=== PATIENT | male | born 1965 | race Asian ===

== ENCOUNTER 2017-06-18 18:16 | Inpatient (IN) | payer SELFPAY ==
[2017-06-18] MEDS ORDERED: HYDROmorphone 1 mg/mL 1mL Syr ONE (21:18)
[2017-06-18 21:31] LABS: % BASOPHILS 0.3 % (0.0-2.0); % EOSINOPHILS 2.3 % (0.0-5.0); % LYMPHOCYTES 9.8 % (20.0-50.0); % MONOCYTES 7.8 % (2.0-10.0); % NEUTROPHILS 79.8 % (40.0-80.0); HEMATOCRIT 38.6 % (41.0-60); HEMOGLOBIN 13.4 gm/dL (12-16); MEAN CELL VOLUME 90.7 fl (80-99); MEAN CORPUSCULAR HEMOGLOBIN 31.6 pg (26.0-30.0); MEAN CORPUSCULAR HGB CONC 34.8 pg (28.0-36.0); MEAN PLATELET VOLUME 8.2 fl; PLATELET COUNT 250 Th/cmm (150-400); RED BLOOD COUNT 4.25 Mil/cmm (4.30-5.70); RED CELL DISTRIBUTION WIDTH 12.9 % (11.5-20.0)
[2017-06-18 21:35] LABS: WHITE BLOOD COUNT 13.8 Th/cmm (4.8-10.8)
[2017-06-18 21:51] LABS: BUN - UREA NITROGEN 14 mg/dL (7-25); BUN/CREATININE RATIO 12.7; CALCIUM SERUM 9.5 mg/dL (8.6-10.3); CARBON DIOXIDE 26.1 mEq/L (21.0-31.0); CHLORIDE 98 mEq/L (98-107); CREATININE - SERUM 1.1 mg/dL (0.7-1.3); GLUCOSE 119 mg/dL (70-105); POTASSIUM SERUM 4.1 mEq/L (3.5-5.1); SODIUM SERUM 131 mEq/L (136-145)
[2017-06-18] MEDS ORDERED: HYDROmorphone 1 mg/mL 1mL Syr IVP STA (22:44)
[2017-06-18] MEDS ORDERED: Albuterol Nebulizer 2.5mg/3mL HHN PRN (22:50)
[2017-06-18] MEDS ORDERED: Maalox 30 mL Cup PO PRN (22:50)
[2017-06-18] MEDS ORDERED: Diltiazem 5 mg/mL 5mL Vial IVP PRN (22:50)
[2017-06-18 22:57] LABS: PROTHROMBIN TIME (TEST) 93.6 SECONDS (9.5-11.5)
[2017-06-18 22:58] LABS: INR > 9.00 (0.5-1.4)
[2017-06-19 00:22] LABS: CREATINE KINASE MB 2.2 ng/mL (0.6-6.3)
[2017-06-19] MEDS ORDERED: Pneumococcal Vaccine 0.5 mL Vial IM ONE (02:24)
--- NOTE | 2017-06-19 03:03 | ED Physician Chart ---
ED Chief Complaint/HPI - Patient Information Date Seen:: 06/18/17 Time Seen:: 20:30 ( requested evaluation in waiting room.) Chief Complaint:: pain in left thigh History of Present Illness:: Pain present for last 3 days, patient thought it was gout; noticed discoloration of his knee, seen by his PMD, instructed to go ER as pain became progressively worse. Allergies:: Allergies Allergy/AdvReac Type Severity Reaction Status Date / Time No Known Allergies Allergy Verified 06/18/17 19:06 Vitals:: Vital Signs - 8 hr 06/18/17 19:11 Temp 98.4 F HR 55 RR 15 BP 146/97 O2 Sat % 100 Historian:: Patient, Other (PMD ) Review:: Nurse's Note Reviewed ED Review of Systems - Review of Systems General/Constitutional: No fever Skin: Skin lesions, Bruising, Other (Significantly hard thigh. ) Head: No headache, No light-headedness Eyes: No loss of vision, No pain ENT: No earache Neck: No neck pain Cardio Vascular: No chest pain, No palpitations Pulmonary: No SOB, No cough GI: No nausea, No vomiting, No diarrhea, No pain G/U: No dysuria Musculoskeletal: Muscle pain Endocrine: No polyuria Psychiatric: No prior psych history Hematopoietic: Bruising, No lymphadenopathy Allergic/Immuno: No urticaria Neurological: No syncope, No headache Other: History of cumadin use for fib. ED Past Medical History - Past Medical History Past Medical History: CAD Family History: None Social History: Non Smoker, No Alcohol, No Drug Use, Surgical History: None Psychiatricy History: None Other PMH History: History of coumadin for fib. Implantable defibrilator. Medication: Reviewed Family Medical History - Family Member Mother History Unknown: Yes Hx Family Coronary Artery Disease: Yes ED Physical Exam - Physical Examination General/Constitutional: Awake, Well-developed, well-nourished, Alert, Ambulatory Head: Atraumatic Eyes: Lids, conjuctiva normal Other Skin comments:: eccymosis and bruising ENMT: External ears, nose nl Neck: Nontender Respiratory: Nl effort/Exclusion, Clear to Auscultation, No Wheeze/Rhonchi/Rales Cardio Vascular: RRR, No murmur, gallop, rubs, NL S1 S2, Carotid/Femoral/Distal pulses equal bilaterally GI: No tenderness/rebounding/guarding, No organomegaly, Normal BS's, Nondistended, No McBurney tenderness : No CVA tenderness Extremities: Normal digits & nails Other Extremities comments:: Left thigh tender Neuro/Psych: Alert/oriented, Mood normal Misc: Normal back ED Labs/Radiology/EKG Results - Lab Results Results: INR 9.0 PTT 107 Will be given vitamin K and fresh frozen plasma PMD notified - Radiology Results Results: Quadricep hematoma shown on CT. ED Assessment - Assessment General Assessment: Acute coumadin toxicity with coagulopathy and muscle hematoma, rule out compartment syndrome This condition life threatening/high prob of deterioration: Yes Assessment/Comments:: Pt needs reversal. ED Septic Shock - . Is Septic Shock (SBP<90, OR Lactate>4 mmol\L) present?: No - <6hrs of presentation: Vital Signs: Vital Signs - 8 hr 06/18/17 19:11 Temp 98.4 F HR 55 RR 15 BP 146/97 O2 Sat % 100 ED Reassessment (Disposition) - Reassessment Reassessment Condition:: Improved - Diagnosis Diagnosis:: Quadricep hematoma - Patient Disposition Discharge/Transfer:: Acute Care w/in this hosp Admitting Medical Physician:: Mike Viveros Time:: 01:30 Condition at Disposition:: Stable, Improved ED Discharge Plan - Patient Disposition Admit/Discharge/Transfer: Acute Care w/in this hosp Condition at Disposition: Stable
--- NOTE | 2017-06-19 08:36 | Diagnostic Imaging Report ---
Exam: CT examination left lower extremity Diagnosis: Swelling left thigh Total DLP equals 429 CTDI equals 9.6 Findings: Multiple contiguous thin section of the left lower extremity was performed from the level of left hip joint to the distal left femur without the administration of contrast material, therefore the study somewhat limited. The study demonstrates heterogeneous focus or enlargement and swelling within the quadriceps muscle measuring 13 x 6.5 x 3.6 cm which might represent area of intramuscular hemorrhage versus mass early inflammatory changes phlegmon formation cannot be excluded Clinical correlation and follow-up examination with intravenous contrast material is recommended. There is evidence for edema and stranding of the facial planes. There is no evidence of abscess formation. No soft tissue subcutaneous gas collection present. Normal appearance of the left femur without abnormality of the periosteum appreciated. IMPRESSION: Large area swelling and heterogeneous density within the left quadriceps muscle might represent intramuscular hematoma inflammatory changes early abscess formation or phlegmon cannot be excluded. Follow-up examination with contrast material is recommended.
--- NOTE | 2017-06-19 08:40 | Diagnostic Imaging Report ---
Exam: CT examination of the left knee joint HISTORY: Pain Total DLP equals 166 CTDI equals 7.3 5: Multiple contiguous thin section of the left knee joint were obtained without administration of contrast material The study demonstrates no evidence of fracture dislocation or joint effusion. There is evidence of subcutaneous soft tissue swelling with edema and stranding in the lateral aspect of the left knee. IMPRESSION: Question of intramuscular hematoma with inflammatory changes, phlegmon formation cannot be excluded. Short interval follow-up examination with contrast material is recommended. If ligamentous or meniscal injury is suspected, MRI examination might be helpful.
[2017-06-19] MEDS: Pantoprazole 40 mg EC Tab PO SCH (09:24)
[2017-06-19 10:24] LABS: % BASOPHILS 0.5 % (0.0-2.0); % EOSINOPHILS 3.2 % (0.0-5.0); % LYMPHOCYTES 10.1 % (20.0-50.0); % MONOCYTES 8.1 % (2.0-10.0); % NEUTROPHILS 78.1 % (40.0-80.0); HEMATOCRIT 32.9 % (41.0-60); HEMOGLOBIN 11.5 gm/dL (12-16); MEAN CORPUSCULAR HEMOGLOBIN 31.5 pg (26.0-30.0); MEAN PLATELET VOLUME 7.9 fl; NEUTROPHILE ABSOLUTE 8.6 Th/cmm (1.8-8.0); PLATELET COUNT 210 Th/cmm (150-400); RED BLOOD COUNT 3.66 Mil/cmm (4.30-5.70); RED CELL DISTRIBUTION WIDTH 12.5 % (11.5-20.0); WHITE BLOOD COUNT 11.1 Th/cmm (4.8-10.8)
[2017-06-19 10:41] LABS: INR 2.71 (0.5-1.4); PROTHROMBIN TIME (TEST) 29.7 SECONDS (9.5-11.5)
[2017-06-19 10:46] LABS: ALB/GLOB RATIO 1.4 (1.0-1.8); ALKALINE PHOSPHATASE 70 U/L (34-104); ANION GAP 8.5 (7.0-16.0); BILIRUBIN,TOTAL 1.3 mg/dL (0.3-1.0); BUN - UREA NITROGEN 14 mg/dL (7-25); CALCIUM SERUM 9.4 mg/dL (8.6-10.3); CARBON DIOXIDE 30.5 mEq/L (21.0-31.0); CHLORIDE 95 mEq/L (98-107); GLUCOSE 124 mg/dL (70-105); SGOT 40 U/L (13-39); SGPT/ALT 48 U/L (7-52); SODIUM SERUM 130 mEq/L (136-145)
[2017-06-19] MEDS ORDERED: VTE Chemical Prophylaxis Screen/Admission MC PRN (15:58)
[2017-06-19] MEDS: Hydrocodone/APAP 5mg/325mg Tab PO PRN (21:42)
[2017-06-20] MEDS: Morphine Sulfate 2 mg/mL 1mL Syr IVP PRN (00:55)
--- NOTE | 2017-06-20 05:42 | History & Physical ---
ADMIT DATE: 06/18/2017 CHIEF COMPLAINT: Left leg pain and swelling. HISTORY OF PRESENT ILLNESS: This is a 51-year-old [place] male with history of CAD, cardiac arrhythmia status post AICD, CHF, who was admitted from home secondary to left leg pain and swelling. The patient was complaining of pain, took Celebrex ____. The patient was brought into the ER. CT showed a large hematoma. Coumadin excess of 9, was given fresh frozen plasma. PAST MEDICAL HISTORY: As mentioned in history present illness. PAST SURGICAL HISTORY: Status post AICD placement. ALLERGIES: No known drug allergies. MEDICATIONS: Lasix, Coreg, Coumadin, amiodarone, lisinopril, digoxin. FAMILY HISTORY: Noncontributory. SOCIAL HISTORY: Nonsmoker, nondrinker, no intravenous drug use. with 3 children. REVIEW OF SYSTEMS: GENERAL: Complains of not feeling well. HEENT: No blurred vision. LUNGS: Negative for COPD and asthma. HEART: The patient is having coronary artery disease, cardiac arrhythmia. ABDOMEN: No nausea, vomiting or pain. GENITOURINARY: The patient denies increased frequency or dysuria. NEUROLOGIC: No headache, seizure or syncope. PSYCHIATRIC: Stable. PHYSICAL EXAMINATION: VITAL SIGNS: Blood pressure 124/67, respiration ____, pulse 62, temperature is 98. GENERAL: A middle-aged male in no acute distress. NECK: Supple. No mass. LUNGS: Equal breath sounds, few rhonchi. HEART: Regular rate and rhythm with systolic ejection murmur. ABDOMEN: Soft, nontender. EXTREMITIES: Positive excoriations. NEUROLOGIC: Limited. EXTREMITIES: Positive edema, left thigh area tender on palpation ____. LABORATORY DATA: WBC 13, hemoglobin 11.5, platelets 210. INR was greater than 9 post-platelet transfusion, fresh frozen plasma showed 2.7. BUN 40, creatinine 1.0. ASSESSMENT AND PLAN: Coumadin toxicity, left lower extremity hematoma. CAD status post AICD, CHF, leukocytosis and anemia. We will monitor the patient's hemoglobin and hematocrit, as well as protime. We will refer the patient to Hematology as well as Cardiology. There was an episode of bradycardia, we will make some adjustment to his antihypertensive medication especially beta-rey. We will continue to monitor the patient closely. We may consider the patient ____. We will continue to follow. [facility]# [id number]
[2017-06-20 05:48] LABS: HEMATOCRIT 35.2 % (41.0-60); HEMOGLOBIN 12.1 gm/dL (12-16); MEAN CELL VOLUME 91.3 fl (80-99); MEAN CORPUSCULAR HEMOGLOBIN 31.4 pg (26.0-30.0); MEAN CORPUSCULAR HGB CONC 34.4 pg (28.0-36.0); MEAN PLATELET VOLUME 8.3 fl; PLATELET COUNT 210 Th/cmm (150-400); RED BLOOD COUNT 3.85 Mil/cmm (4.30-5.70); RED CELL DISTRIBUTION WIDTH 12.6 % (11.5-20.0)
[2017-06-20 06:04] LABS: WHITE BLOOD COUNT 12.6 Th/cmm (4.8-10.8)
[2017-06-20 06:25] LABS: INR 1.6 (0.5-1.4); PROTHROMBIN TIME (TEST) 17.1 SECONDS (9.5-11.5)
[2017-06-20 06:30] LABS: CREATINE KINASE MB 3.4 ng/mL (0.6-6.3)
[2017-06-20 06:44] LABS: EOSINOPHIL 3 % (0-5); NEUTROPHILS 78 % (40-80); TOTAL CELLS COUNTED 100
--- NOTE | 2017-06-20 06:44 | General Progress Note ---
Subjective - Review of Systems Service Date: 06/20/17 Events since last encounter: consult dictated left thigh hematoma on CT and PE cardiology eval - patient not reliable with Coumadin as he does not check his PT regulrly will drain hematoma in AM Objective - Results Result Diagrams: 06/20/17 05:13 06/19/17 10:10 Recent Labs: Laboratory Last Values WBC 12.6 Th/cmm (4.8-10.8) H 06/20/17 05:13 RBC 3.85 Mil/cmm (4.30-5.70) L 06/20/17 05:13 Hgb 12.1 gm/dL (12-16) 06/20/17 05:13 Hct 35.2 % (41.0-60) L 06/20/17 05:13 MCV 91.3 fl (80-99) 06/20/17 05:13 MCH 31.4 pg (26.0-30.0) H 06/20/17 05:13 MCHC Differential 34.4 pg (28.0-36.0) 06/20/17 05:13 RDW 12.6 % (11.5-20.0) 06/20/17 05:13 Plt Count 210 Th/cmm (150-400) 06/20/17 05:13 MPV 8.3 fl 06/20/17 05:13 Neutrophils % 78.0 % (40.0-80.0) 06/20/17 05:13 Lymphocytes % 10.8 % (20.0-50.0) L 06/20/17 05:13 Monocytes % 7.9 % (2.0-10.0) 06/20/17 05:13 Eosinophils % 3.2 % (0.0-5.0) 06/20/17 05:13 Basophils % 0.1 % (0.0-2.0) 06/20/17 05:13 PT 29.7 SECONDS (9.5-11.5) H 06/19/17 10:10 INR 2.71 (0.5-1.4) H 06/19/17 10:10 PTT (Actin FS) 49.1 SECONDS (26.0-38.0) H 06/19/17 10:10 Sodium 130 mEq/L (136-145) L 06/19/17 10:10 Potassium 4.0 mEq/L (3.5-5.1) 06/19/17 10:10 Chloride 95 mEq/L (98-107) L 06/19/17 10:10 Carbon Dioxide 30.5 mEq/L (21.0-31.0) 06/19/17 10:10 Anion Gap 8.5 (7.0-16.0) 06/19/17 10:10 BUN 14 mg/dL (7-25) 06/19/17 10:10 Creatinine 1.0 mg/dL (0.7-1.3) 06/19/17 10:10 Est GFR ( Amer) > 60.0 ml/min (>90) 06/19/17 10:10 Est GFR (Non-Af Amer) > 60.0 ml/min 06/19/17 10:10 BUN/Creatinine Ratio 14.0 06/19/17 10:10 Glucose 124 mg/dL (70-105) H 06/19/17 10:10 Whole Bld Lactic Acid 1.08 mmol/L (0.60-1.99) 06/18/17 23:18 Calcium 9.4 mg/dL (8.6-10.3) 06/19/17 10:10 Total Bilirubin 1.3 mg/dL (0.3-1.0) H 06/19/17 10:10 AST 40 U/L (13-39) H 06/19/17 10:10 ALT 48 U/L (7-52) 06/19/17 10:10 Alkaline Phosphatase 70 U/L (34-104) 06/19/17 10:10 Creatine Kinase 882 U/L (30-223) H 06/20/17 05:13 CK-MB (CK-2) 2.2 ng/mL (0.6-6.3) 06/18/17 21:15 B-Natriuretic Peptide 26.1 pg/mL (5.0-100.0) 06/20/17 05:13 Total Protein 7.3 gm/dL (6.0-8.3) 06/19/17 10:10 Albumin 4.3 gm/dL (4.2-5.5) 06/19/17 10:10 Globulin 3.0 gm/dL 06/19/17 10:10 Albumin/Globulin Ratio 1.4 (1.0-1.8) 06/19/17 10:10 TSH 3.52 uIU/ml (0.34-5.60) 06/19/17 10:10 Blood Type O POSITIVE 06/19/17 00:57 Antibody Screen NEGATIVE 06/19/17 00:57 - Physical Exam Vitals and I&O: Vital Signs Temp 98.1 F 06/20/17 04:00 Pulse 51 06/20/17 04:00 Resp 20 06/20/17 04:00 BP 128/66 06/20/17 04:00 Pulse Ox 96 06/20/17 04:00 Intake & Output 06/19/17 06/19/17 06/20/17 06:59 18:59 06:59 Intake Total 300 900 Output Total 500 1200 Balance -200 -300 Weight (lbs) 69.853 kg 69.853 kg 69.853 kg Intake: Oral 600 Blood Product 300 300 Output: Urine 500 1200 Stool 0 Other: # Voids 1 1 # Bowel Movements 0 Stool Characteristics Formed Brown Active Medications: Current Medications Acetaminophen (Tylenol) 650 mg PO Q4H PRN PRN Reason: Mild Pain Or Fever above 101 Stop: 08/17/17 22:49 Acetaminophen/Hydrocodone Bitart ([place] 5mg/325mg) 1 tab PO Q4H PRN PRN Reason: Pain (Severe) Stop: 08/17/17 22:49 Last Admin: 06/19/17 21:42 Dose: 1 tab Al Hydrox/Mg Hydrox/Simethicone (Maalox) 30 ml PO Q6H PRN PRN Reason: Dyspepsia Stop: 08/17/17 22:49 Albuterol Sulfate (Albuterol 2.5mg/3ml Neb Ud) 2.5 mg HHN Q2HRT PRN PRN Reason: Shortness of Breath or Wheeze Stop: 08/17/17 22:49 Amiodarone HCl (Cordarone) 200 mg PO DAILY [facility] Stop: 08/18/17 08:59 Last Admin: 06/19/17 09:24 Dose: 200 mg Carvedilol (Coreg) 3.125 mg PO BID [facility] Stop: 08/18/17 16:59 Digoxin (Lanoxin) 0.125 mg PO DAILY [facility] Stop: 08/18/17 08:59 Last Admin: 06/19/17 09:25 Dose: 0.125 mg Diltiazem HCl (Cardizem) 20 mg IVP Q4H PRN PRN Reason: HR Greater than 130 per min Stop: 08/17/17 22:49 Lisinopril (Zestril) 5 mg PO DAILY [facility] Stop: 08/19/17 08:59 Miscellaneous (Vte Chemical Prophylaxis Screen/ Admission) 1 ea [facility] PRN PRN PRN Reason: PROTOCOL Stop: 08/18/17 15:57 Morphine Sulfate (Morphine) 2 mg IVP Q4H PRN PRN Reason: Pain (Severe) Stop: 08/17/17 22:49 Last Admin: 06/20/17 00:55 Dose: 2 mg Ondansetron HCl (Zofran) 4 mg IV Q8H PRN PRN Reason: Nausea / Vomiting Stop: 08/17/17 22:49 Pantoprazole Sodium (Protonix) 40 mg PO BID [facility] Stop: 08/18/17 08:59 Last Admin: 06/19/17 09:24 Dose: 40 mg Sodium Chloride (Saline Flush) 10 ml IV QSHIFT [facility] Stop: 08/18/17 07:59 Last Admin: 06/19/17 21:44 Dose: 10 ml Zolpidem Tartrate (Ambien) 10 mg PO HS PRN PRN Reason: Insomnia Stop: 08/17/17 22:49 Assessment/Plan - Problem List Patient Problems: All Active Problems PAIN TO LEFT KNEE/THIGH (Acute)
--- NOTE | 2017-06-20 08:06 | Diagnostic Imaging Report ---
Left lower extremity Doppler arterial ultrasound exam HISTORY: Swelling Sonographic sector images were obtained through the arterial system of the left leg. Associated Doppler data was obtained. The exam demonstrates normal triphasic waveforms within the common femoral, superficial femoral, and popliteal arteries. Biphasic waveforms are seen within the left anterior tibial artery. Abnormal monophasic waveforms noted within the left posterior tibial and dorsalis pedis arteries. Abnormal increase in velocity noted within the left dorsalis fetus artery region. Sonographic images demonstrate mild diffuse atherosclerotic plaque throughout the arterial system. The right ankle-brachial index is normal (0.9). Of note is an approximate 10.0 x 3.4 x 5.7 cm heterogeneous solid density within the soft tissues of the left thigh. Exact etiology is uncertain. Changes related to hematoma or a neoplastic or inflammatory etiology cannot be excluded. The findings correspond to changes noted on a prior CT scan of June 19, 2017. An MRI scan would provide additional characterization and assessment. IMPRESSION: 1. Evidence of mild diffuse atherosclerotic changes throughout the arterial system of the left leg. Findings somewhat more pronounced within the lower leg and foot region. 2. Relatively large heterogeneous density within the soft tissues of the left side. Findings correspond to changes noted on the earlier CT scan of June 19, 2017. Appearance is nonspecific. Changes related to hematoma, neoplasm, or an inflammatory etiology cannot be excluded. An MRI exam would provide additional characterization and specificity.
--- NOTE | 2017-06-20 08:09 | Diagnostic Imaging Report ---
Left lower extremity Doppler venous ultrasound exam HISTORY: Pain/swelling, mass Sonographic sector images were obtained through the deep venous systems of both legs. Associated Doppler data was obtained. The exam demonstrates patency of the common femoral, superficial femoral, popliteal, and posterior tibial veins bilaterally. Specifically, no thrombus is seen. There are normal compressibility and augmentation responses. There is an approximate 14.0 x 3.4 x 5.7 cm heterogeneous density within the soft tissues of the left lateral thigh area. This corresponds to changes noted on a prior CT scan of June 19, 2017. Changes related to hematoma, an inflammatory etiology, or neoplasm cannot be excluded. Clinical correlation is needed. IMPRESSION: 1. Negative examination for deep vein thrombophlebitis 2. Heterogeneous relatively large density within the soft tissues of the left lateral thigh area. This corresponds to changes noted on an earlier CT scan of June 19, 2017.The appearance is nonspecific. Changes related hematoma, an inflammatory etiology, or neoplasm be excluded. Clinical correlation is needed. If necessary, an MRI exam would provide additional characterization and specificity.
[2017-06-20] MEDS: Pantoprazole 40 mg EC Tab PO SCH ×2 (08:44→17:18)
--- NOTE | 2017-06-20 09:48 | Consultation ---
DATE OF CONSULTATION: 06/20/2017 REFERRING PHYSICIAN: Dr. Viveros. REASON FOR CONSULTATION: Pain and swelling, left thigh. Thank you for referring this patient to me. HISTORY OF PRESENT ILLNESS: This is a 51-year-old male, who comes in because of severe pain and swelling of the left thigh, this started about a week ago when the patient, who has been on Coumadin, started taking Celebrex because he thought his gout was responsible for the pain. He started taking Celebrex, but did not check his prothrombin time. He has been taking Coumadin for arrhythmia for which an AICD was placed 7 months ago. Additionally, he has gout for which he takes also medications. On admission, the prothrombin time was markedly elevated to 93.6 seconds for which he was given FFP. This come down now to 29.7 seconds at 2.71 INR. CBC is within normal limits. He underwent CT scan of the extremity, which shows a large hematoma in the left thigh. PHYSICAL EXAMINATION: The patient is alert and awake. He has marked swelling and tenderness in the left thigh. Peripheral circulation in the lower extremities are within normal limits. IMPRESSION AND RECOMMENDATIONS: We will incise and drain the hematoma tomorrow and hopefully the INR will be better at that time. We will need to monitor his uric acid as well. Cardiology evaluation is needed to get the proper dosage and selection of anticoagulant for this patient, who apparently is not very reliable in checking his prothrombin times, switching to non-Coumadin medication may be indicated. Thank you for this consultation. We will follow. [facility]# [id number]
--- NOTE | 2017-06-20 09:55 | Cardiology ---
06/19/[address] Viveros. M-MODE ECHOCARDIOGRAM: Mitral valve, anterior leaflet of mitral valve shows normal excursion, EF velocity. Posterior leaflet of mitral valve shows normal excursion. Left ventricular posterior wall shows increased thickness, normal excursion. Interventricular septum shows increased thickness, normal excursion, hypertrophy of the left ventricle, ejection fraction 50%. Left atrium normal. Aortic root shows normal dimension, normal excursion of aortic leaflets. CONCLUSION: Hypertrophy of the left ventricle, ejection fraction 50%. 2D ECHO: Long axis view showed normal sized left ventricle with hypertrophy of the left ventricle. Left atrium normal. Aortic root shows normal dimension, normal excursion of aortic leaflets. Short axis view of mitral valve normal. Short axis view of aortic valve normal. Apical four chamber view showed normal sized left ventricle, left atrium, right ventricle, right atrium, tricuspid and mitral valve. Ejection fraction 50%. CONCLUSION: Hypertrophy of the left ventricle, ejection fraction 50%. Doppler study showed trace tricuspid regurgitation, trace pulmonary regurgitation, trace aortic regurgitation. Right ventricular systolic pressure 21 mmHg. [facility]# [id number]
[2017-06-20] MEDS: Hydrocodone/APAP 5mg/325mg Tab PO PRN ×2 (11:48→19:41)
--- NOTE | 2017-06-20 14:13 | Internal Medicine Prog Note ---
Internal Medicine Subjective - Subjective Service Date: 06/20/17 (patient c/o left knee pain that radiates to his tail bone he states that morphine helps relieve the pain. denies chest pain or sob. ) Internal Medicine Objective - Results Result Diagrams: 06/20/17 05:13 06/19/17 10:10 Recent Labs: Laboratory Last Values WBC 12.6 Th/cmm (4.8-10.8) H 06/20/17 05:13 RBC 3.85 Mil/cmm (4.30-5.70) L 06/20/17 05:13 Hgb 12.1 gm/dL (12-16) 06/20/17 05:13 Hct 35.2 % (41.0-60) L 06/20/17 05:13 MCV 91.3 fl (80-99) 06/20/17 05:13 MCH 31.4 pg (26.0-30.0) H 06/20/17 05:13 MCHC Differential 34.4 pg (28.0-36.0) 06/20/17 05:13 RDW 12.6 % (11.5-20.0) 06/20/17 05:13 Plt Count 210 Th/cmm (150-400) 06/20/17 05:13 MPV 8.3 fl 06/20/17 05:13 Neutrophils % METAL TURNER 06/20/17 05:13 Lymphocytes % METAL TURNER 06/20/17 05:13 Monocytes % METAL TURNER 06/20/17 05:13 Eosinophils % METAL TURNER 06/20/17 05:13 Basophils % METAL TURNER 06/20/17 05:13 Neutrophils (Manual) 78 % (40-80) 06/20/17 05:13 Lymphocytes 16 % (20-50) L 06/20/17 05:13 Monocytes 3 % (2-10) 06/20/17 05:13 Eosinophils 3 % (0-5) 06/20/17 05:13 PT 17.1 SECONDS (9.5-11.5) H 06/20/17 05:13 INR 1.60 (0.5-1.4) H 06/20/17 05:13 PTT (Actin FS) 39.9 SECONDS (26.0-38.0) H 06/20/17 05:13 Sodium 130 mEq/L (136-145) L 06/19/17 10:10 Potassium 4.0 mEq/L (3.5-5.1) 06/19/17 10:10 Chloride 95 mEq/L (98-107) L 06/19/17 10:10 Carbon Dioxide 30.5 mEq/L (21.0-31.0) 06/19/17 10:10 Anion Gap 8.5 (7.0-16.0) 06/19/17 10:10 BUN 14 mg/dL (7-25) 06/19/17 10:10 Creatinine 1.0 mg/dL (0.7-1.3) 06/19/17 10:10 Est GFR ( Amer) > 60.0 ml/min (>90) 06/19/17 10:10 Est GFR (Non-Af Amer) > 60.0 ml/min 06/19/17 10:10 BUN/Creatinine Ratio 14.0 06/19/17 10:10 Glucose 124 mg/dL (70-105) H 06/19/17 10:10 Whole Bld Lactic Acid 1.08 mmol/L (0.60-1.99) 06/18/17 23:18 Uric Acid 3.9 mg/dL (4.4-7.6) L 06/20/17 05:13 Calcium 9.4 mg/dL (8.6-10.3) 06/19/17 10:10 Total Bilirubin 1.3 mg/dL (0.3-1.0) H 06/19/17 10:10 AST 40 U/L (13-39) H 06/19/17 10:10 ALT 48 U/L (7-52) 06/19/17 10:10 Alkaline Phosphatase 70 U/L (34-104) 06/19/17 10:10 Creatine Kinase 882 U/L (30-223) H 06/20/17 05:13 CK-MB (CK-2) 3.4 ng/mL (0.6-6.3) 06/20/17 05:13 B-Natriuretic Peptide 26.1 pg/mL (5.0-100.0) 06/20/17 05:13 Total Protein 7.3 gm/dL (6.0-8.3) 06/19/17 10:10 Albumin 4.3 gm/dL (4.2-5.5) 06/19/17 10:10 Globulin 3.0 gm/dL 06/19/17 10:10 Albumin/Globulin Ratio 1.4 (1.0-1.8) 06/19/17 10:10 TSH 3.52 uIU/ml (0.34-5.60) 06/19/17 10:10 Blood Type O POSITIVE 06/19/17 00:57 Antibody Screen NEGATIVE 06/19/17 00:57 - Physical Exam Vitals and I&O: Vital Signs Temp 98.0 F 06/20/17 12:00 Pulse 60 06/20/17 12:00 Resp 19 06/20/17 12:00 BP 113/61 06/20/17 12:00 Pulse Ox 96 06/20/17 12:00 Intake & Output 06/19/17 06/20/17 06/20/17 18:59 06:59 18:59 Intake Total 900 Output Total 1200 Balance -300 Weight (lbs) 154 lb 154 lb Intake: Oral 600 Blood Product 300 Output: Urine 1200 Stool 0 Other: # Voids 1 # Bowel Movements 0 Stool Characteristics Formed Brown Active Medications: Current Medications Acetaminophen (Tylenol) 650 mg PO Q4H PRN PRN Reason: Mild Pain Or Fever above 101 Stop: 08/17/17 22:49 Acetaminophen/Hydrocodone Bitart ([place] 5mg/325mg) 1 tab PO Q4H PRN PRN Reason: Pain (Severe) Stop: 08/17/17 22:49 Last Admin: 06/20/17 11:48 Dose: 1 tab Al Hydrox/Mg Hydrox/Simethicone (Maalox) 30 ml PO Q6H PRN PRN Reason: Dyspepsia Stop: 08/17/17 22:49 Albuterol Sulfate (Albuterol 2.5mg/3ml Neb Ud) 2.5 mg HHN Q2HRT PRN PRN Reason: Shortness of Breath or Wheeze Stop: 08/17/17 22:49 Amiodarone HCl (Cordarone) 200 mg PO DAILY [facility] Stop: 08/18/17 08:59 Last Admin: 06/20/17 08:45 Dose: 200 mg Carvedilol (Coreg) 3.125 mg PO BID [facility] Stop: 08/18/17 16:59 Last Admin: 06/20/17 08:45 Dose: 3.125 mg Digoxin (Lanoxin) 0.125 mg PO DAILY [facility] Stop: 08/18/17 08:59 Last Admin: 06/20/17 08:43 Dose: 0.125 mg Diltiazem HCl (Cardizem) 20 mg IVP Q4H PRN PRN Reason: HR Greater than 130 per min Stop: 08/17/17 22:49 Lisinopril (Zestril) 5 mg PO DAILY [facility] Stop: 08/19/17 08:59 Last Admin: 06/20/17 08:43 Dose: 5 mg Miscellaneous (Vte Chemical Prophylaxis Screen/ Admission) 1 ea [facility] PRN PRN PRN Reason: PROTOCOL Stop: 08/18/17 15:57 Morphine Sulfate (Morphine) 2 mg IVP Q4H PRN PRN Reason: Pain (Severe) Stop: 08/17/17 22:49 Last Admin: 06/20/17 00:55 Dose: 2 mg Ondansetron HCl (Zofran) 4 mg IV Q8H PRN PRN Reason: Nausea / Vomiting Stop: 08/17/17 22:49 Pantoprazole Sodium (Protonix) 40 mg PO BID [facility] Stop: 08/18/17 08:59 Last Admin: 06/20/17 08:44 Dose: 40 mg Sodium Chloride (Saline Flush) 10 ml IV QSHIFT [facility] Stop: 08/18/17 07:59 Last Admin: 06/20/17 11:46 Dose: 10 ml Zolpidem Tartrate (Ambien) 10 mg PO HS PRN PRN Reason: Insomnia Stop: 08/17/17 22:49 Internal Medicine Assmt/Plan - Assessment Assessment: COUMADIN TOXICITY LLE HEMATOMA CAD S/P AICD CHF LEUKOCYTOSIS ANEMIA - Plan Plan: hematoma evacuation tomorrow by Dr. Ortega telemetry monitoring pain mgmt continue current plan of care
--- NOTE | 2017-06-20 15:47 | General Progress Note ---
Subjective - Review of Systems Service Date: 06/20/17 Events since last encounter: will schedule for surgery in AM Objective - Results Result Diagrams: 06/20/17 05:13 06/19/17 10:10 Recent Labs: Laboratory Last Values WBC 12.6 Th/cmm (4.8-10.8) H 06/20/17 05:13 RBC 3.85 Mil/cmm (4.30-5.70) L 06/20/17 05:13 Hgb 12.1 gm/dL (12-16) 06/20/17 05:13 Hct 35.2 % (41.0-60) L 06/20/17 05:13 MCV 91.3 fl (80-99) 06/20/17 05:13 MCH 31.4 pg (26.0-30.0) H 06/20/17 05:13 MCHC Differential 34.4 pg (28.0-36.0) 06/20/17 05:13 RDW 12.6 % (11.5-20.0) 06/20/17 05:13 Plt Count 210 Th/cmm (150-400) 06/20/17 05:13 MPV 8.3 fl 06/20/17 05:13 Neutrophils % BULK FOLDER 06/20/17 05:13 Lymphocytes % BULK FOLDER 06/20/17 05:13 Monocytes % BULK FOLDER 06/20/17 05:13 Eosinophils % BULK FOLDER 06/20/17 05:13 Basophils % BULK FOLDER 06/20/17 05:13 Neutrophils (Manual) 78 % (40-80) 06/20/17 05:13 Lymphocytes 16 % (20-50) L 06/20/17 05:13 Monocytes 3 % (2-10) 06/20/17 05:13 Eosinophils 3 % (0-5) 06/20/17 05:13 PT 17.1 SECONDS (9.5-11.5) H 06/20/17 05:13 INR 1.60 (0.5-1.4) H 06/20/17 05:13 PTT (Actin FS) 39.9 SECONDS (26.0-38.0) H 06/20/17 05:13 Sodium 130 mEq/L (136-145) L 06/19/17 10:10 Potassium 4.0 mEq/L (3.5-5.1) 06/19/17 10:10 Chloride 95 mEq/L (98-107) L 06/19/17 10:10 Carbon Dioxide 30.5 mEq/L (21.0-31.0) 06/19/17 10:10 Anion Gap 8.5 (7.0-16.0) 06/19/17 10:10 BUN 14 mg/dL (7-25) 06/19/17 10:10 Creatinine 1.0 mg/dL (0.7-1.3) 06/19/17 10:10 Est GFR ( Amer) > 60.0 ml/min (>90) 06/19/17 10:10 Est GFR (Non-Af Amer) > 60.0 ml/min 06/19/17 10:10 BUN/Creatinine Ratio 14.0 06/19/17 10:10 Glucose 124 mg/dL (70-105) H 06/19/17 10:10 Whole Bld Lactic Acid 1.08 mmol/L (0.60-1.99) 06/18/17 23:18 Uric Acid 3.9 mg/dL (4.4-7.6) L 06/20/17 05:13 Calcium 9.4 mg/dL (8.6-10.3) 06/19/17 10:10 Total Bilirubin 1.3 mg/dL (0.3-1.0) H 06/19/17 10:10 AST 40 U/L (13-39) H 06/19/17 10:10 ALT 48 U/L (7-52) 06/19/17 10:10 Alkaline Phosphatase 70 U/L (34-104) 06/19/17 10:10 Creatine Kinase 882 U/L (30-223) H 06/20/17 05:13 CK-MB (CK-2) 3.4 ng/mL (0.6-6.3) 06/20/17 05:13 B-Natriuretic Peptide 26.1 pg/mL (5.0-100.0) 06/20/17 05:13 Total Protein 7.3 gm/dL (6.0-8.3) 06/19/17 10:10 Albumin 4.3 gm/dL (4.2-5.5) 06/19/17 10:10 Globulin 3.0 gm/dL 06/19/17 10:10 Albumin/Globulin Ratio 1.4 (1.0-1.8) 06/19/17 10:10 TSH 3.52 uIU/ml (0.34-5.60) 06/19/17 10:10 Blood Type O POSITIVE 06/19/17 00:57 Antibody Screen NEGATIVE 06/19/17 00:57 - Physical Exam Vitals and I&O: Vital Signs Temp 98.0 F 06/20/17 12:00 Pulse 60 06/20/17 12:00 Resp 19 06/20/17 12:00 BP 113/61 06/20/17 12:00 Pulse Ox 96 06/20/17 12:00 Intake & Output 06/19/17 06/20/17 06/20/17 18:59 06:59 18:59 Intake Total 900 Output Total 1200 Balance -300 Weight (lbs) 69.853 kg 69.853 kg Intake: Oral 600 Blood Product 300 Output: Urine 1200 Stool 0 Other: # Voids 1 # Bowel Movements 0 Stool Characteristics Formed Brown Active Medications: Current Medications Acetaminophen (Tylenol) 650 mg PO Q4H PRN PRN Reason: Mild Pain Or Fever above 101 Stop: 08/17/17 22:49 Acetaminophen/Hydrocodone Bitart ([place] 5mg/325mg) 1 tab PO Q4H PRN PRN Reason: Pain (Severe) Stop: 08/17/17 22:49 Last Admin: 06/20/17 11:48 Dose: 1 tab Al Hydrox/Mg Hydrox/Simethicone (Maalox) 30 ml PO Q6H PRN PRN Reason: Dyspepsia Stop: 08/17/17 22:49 Albuterol Sulfate (Albuterol 2.5mg/3ml Neb Ud) 2.5 mg HHN Q2HRT PRN PRN Reason: Shortness of Breath or Wheeze Stop: 08/17/17 22:49 Amiodarone HCl (Cordarone) 200 mg PO DAILY [facility] Stop: 08/18/17 08:59 Last Admin: 06/20/17 08:45 Dose: 200 mg Carvedilol (Coreg) 3.125 mg PO BID [facility] Stop: 08/18/17 16:59 Last Admin: 06/20/17 08:45 Dose: 3.125 mg Digoxin (Lanoxin) 0.125 mg PO DAILY [facility] Stop: 08/18/17 08:59 Last Admin: 06/20/17 08:43 Dose: 0.125 mg Diltiazem HCl (Cardizem) 20 mg IVP Q4H PRN PRN Reason: HR Greater than 130 per min Stop: 08/17/17 22:49 Lisinopril (Zestril) 5 mg PO DAILY [facility] Stop: 08/19/17 08:59 Last Admin: 06/20/17 08:43 Dose: 5 mg Miscellaneous (Vte Chemical Prophylaxis Screen/ Admission) 1 ea [facility] PRN PRN PRN Reason: PROTOCOL Stop: 08/18/17 15:57 Morphine Sulfate (Morphine) 2 mg IVP Q4H PRN PRN Reason: Pain (Severe) Stop: 08/17/17 22:49 Last Admin: 06/20/17 00:55 Dose: 2 mg Ondansetron HCl (Zofran) 4 mg IV Q8H PRN PRN Reason: Nausea / Vomiting Stop: 08/17/17 22:49 Pantoprazole Sodium (Protonix) 40 mg PO BID [facility] Stop: 08/18/17 08:59 Last Admin: 06/20/17 08:44 Dose: 40 mg Sodium Chloride (Saline Flush) 10 ml IV QSHIFT [facility] Stop: 08/18/17 07:59 Last Admin: 06/20/17 11:46 Dose: 10 ml Zolpidem Tartrate (Ambien) 10 mg PO HS PRN PRN Reason: Insomnia Stop: 08/17/17 22:49 Assessment/Plan - Problem List Patient Problems: All Active Problems PAIN TO LEFT KNEE/THIGH (Acute)
--- NOTE | 2017-06-20 17:53 | Consultation ---
DATE OF CONSULTATION: 06/20/2017 REFERRING PHYSICIAN: Dr. Viveros. REASON FOR CONSULTATION: Coagulopathy. HISTORY OF PRESENT ILLNESS: The patient is a 51-year-old male who has a history of congestive heart failure, status post AICD. He has been on Coumadin for many years. [place] and did not monitor his Coumadin level. He presented with swelling in the left thigh that was confirmed to be a hematoma and in left quadriceps muscle. His INR on presentation was 9. He was given fresh frozen plasma and the INR continues to improve. Hemoglobin is fortunately stable. PAST MEDICAL HISTORY: Congestive heart failure, cardiac arrhythmia, status post AICD. SURGICAL HISTORY: AICD placement. MEDICATIONS: Coumadin, amiodarone, lisinopril, digoxin, Coreg, Lasix. He has been off of Coumadin since admission. PHYSICAL EXAMINATION: GENERAL: He is awake, alert, oriented. VITAL SIGNS: Stable. HEENT: Atraumatic. CHEST: Clear. No peripheral lymphadenopathy. Left chest AICD implanted. ABDOMEN: Soft. No organomegaly. EXTREMITIES: Left thigh swelling and discoloration of the lower left thigh and knee from blood staining of the skin. LABORATORY DATA: Hemoglobin from admission was 13.4, from today is 12.1. White count 12.6 ____. INR from admission was more than 9, and today is 1.6. PTT was 107 and today is 39. Creatinine 1, bilirubin 1.3. ASSESSMENT: Coumadin overdose with markedly elevated INR on admission that was reversed with fresh frozen plasma. The INR continues to improve. The patient will be kept off of anticoagulation until the left thigh hematoma is stabilized and the hemoglobin is completely stable, and then reintroduction of the anticoagulation will be done again once the hematoma seems to be stable and improving. Cardio input is appreciated. Thank you for the opportunity to participate in the care of this interesting case with you. [facility]# [id number]
--- NOTE | 2017-06-20 19:39 | Consultation ---
DATE OF CONSULTATION: 06/19/[address] Viveros. HISTORY AND PHYSICAL: This is a 51-year-old male patient who came to the Emergency Room complaining of pain in the left eye including swelling. The patient had a CT scan which showed large hematoma. The patient is admitted. The patient also has Coumadin toxicity with INR of more than 9. PAST MEDICAL HISTORY: The patient has a history of atrial fibrillation and AICD placement for arrhythmias. FAMILY HISTORY: Unremarkable. SOCIAL HISTORY: No history of smoking, alcohol abuse. ALLERGIES: None. PHYSICAL EXAMINATION: VITAL SIGNS: Blood pressure 130/80, pulse 70, and respirations 20. HEAD: Normocephalic. No lumps or bumps. EYES: Pupils are equal and reactive to light. Fundi show AV nicking, sclerae white, and conjunctivae pink. NECK: Carotid 2+. Normal upstroke. JVD flat. Thyroid not palpable. Lymph nodes not palpable. CHEST: Shows increased AP diameter. No kyphosis or scoliosis. LUNGS: Bilateral bronchovesicular breath sounds. HEART: PMI fifth intercostal space with lateral to midclavicular line. S1, S2. No S3, S4. Systolic murmur, grade 2/6, lower left sternal border without radiation. ABDOMEN: Soft. Liver and spleen not palpable. No organomegaly. Bowel sounds are active. NEUROLOGIC: Unremarkable. EXTREMITIES: Peripheral pulses 1+. No pedal edema. The patient has pain, tenderness, and swelling of the left thigh. CLINICAL IMPRESSION: Left thigh large hematoma, Coumadin toxicity, atrial fibrillation, congestive heart failure, diastolic dysfunction, cardiac arrhythmias with AICD placement, and iron deficiency anemia. PLAN: The patient to get fresh frozen plasma and once Protime is surgical incision and drainage of the hematoma. JOB# [id number]
[2017-06-21 04:39] LABS: NEUTROPHILE ABSOLUTE 10.5 Th/cmm (1.8-8.0)
[2017-06-21 04:44] LABS: % EOSINOPHILS 3.7 % (0.0-5.0); % LYMPHOCYTES 10.5 % (20.0-50.0); % MONOCYTES 8.5 % (2.0-10.0); % NEUTROPHILS 77.3 % (40.0-80.0); HEMATOCRIT 33.7 % (41.0-60); HEMOGLOBIN 11.8 gm/dL (12-16); MEAN CELL VOLUME 90.3 fl (80-99); MEAN CORPUSCULAR HEMOGLOBIN 31.7 pg (26.0-30.0); MEAN CORPUSCULAR HGB CONC 35.1 pg (28.0-36.0); MEAN PLATELET VOLUME 8.4 fl; PLATELET COUNT 235 Th/cmm (150-400); RED BLOOD COUNT 3.73 Mil/cmm (4.30-5.70); RED CELL DISTRIBUTION WIDTH 12.7 % (11.5-20.0)
[2017-06-21 04:49] LABS: INR 1.09 (0.5-1.4); PROTHROMBIN TIME (TEST) 11.4 SECONDS (9.5-11.5)
[2017-06-21 04:54] LABS: ANION GAP 9.6 (7.0-16.0); BUN - UREA NITROGEN 19 mg/dL (7-25); BUN/CREATININE RATIO 21.1; CARBON DIOXIDE 28.4 mEq/L (21.0-31.0); CHLORIDE 97 mEq/L (98-107); CREATININE - SERUM 0.9 mg/dL (0.7-1.3); GLUCOSE 104 mg/dL (70-105); SODIUM SERUM 131 mEq/L (136-145)
[2017-06-21 05:07] LABS: WHITE BLOOD COUNT 13.6 Th/cmm (4.8-10.8)
[2017-06-21] MEDS: Pantoprazole 40 mg EC Tab PO SCH ×2 (09:40→17:14)
--- NOTE | 2017-06-21 11:40 | Internal Medicine Prog Note ---
Internal Medicine Subjective - Subjective Service Date: 06/21/17 (awake, alert, still c/o left knee pain ) Patient seen and examined:: with staff Patient is:: awake Patient Complaints of:: other (left knee pain) Internal Medicine Objective - Results Result Diagrams: 06/21/17 04:17 06/21/17 04:17 Recent Labs: Laboratory Last Values WBC 13.6 Th/cmm (4.8-10.8) H 06/21/17 04:17 RBC 3.73 Mil/cmm (4.30-5.70) L 06/21/17 04:17 Hgb 11.8 gm/dL (12-16) L 06/21/17 04:17 Hct 33.7 % (41.0-60) L 06/21/17 04:17 MCV 90.3 fl (80-99) 06/21/17 04:17 MCH 31.7 pg (26.0-30.0) H 06/21/17 04:17 MCHC Differential 35.1 pg (28.0-36.0) 06/21/17 04: RDW 12.7 % (11.5-20.0) 06/21/17 04:17 Plt Count 235 Th/cmm (150-400) 06/21/17 04:17 MPV 8.4 fl 06/21/17 04:17 Neutrophils % 77.3 % (40.0-80.0) 06/21/17 04:17 Lymphocytes % 10.5 % (20.0-50.0) L 06/21/17 04:17 Monocytes % 8.5 % (2.0-10.0) 06/21/17 04:17 Eosinophils % 3.7 % (0.0-5.0) 06/21/17 04:17 Basophils % 0.0 % (0.0-2.0) 06/21/17 04:17 Neutrophils (Manual) 78 % (40-80) 06/20/17 05:13 Lymphocytes 16 % (20-50) L 06/20/17 05:13 Monocytes 3 % (2-10) 06/20/17 05:13 Eosinophils 3 % (0-5) 06/20/17 05:13 PT 11.4 SECONDS (9.5-11.5) 06/21/17 04:17 INR 1.09 (0.5-1.4) 06/21/17 04:17 PTT (Actin FS) 32.3 SECONDS (26.0-38.0) 06/21/17 04:17 Sodium 131 mEq/L (136-145) L 06/21/17 04:17 Potassium 4.0 mEq/L (3.5-5.1) 06/21/17 04:17 Chloride 97 mEq/L (98-107) L 06/21/17 04:17 Carbon Dioxide 28.4 mEq/L (21.0-31.0) 06/21/17 04:17 Anion Gap 9.6 (7.0-16.0) 06/21/17 04:17 BUN 19 mg/dL (7-25) 06/21/17 04:17 Creatinine 0.9 mg/dL (0.7-1.3) 06/21/17 04:17 Est GFR ( Amer) > 60.0 ml/min (>90) 06/21/17 04:17 Est GFR (Non-Af Amer) > 60.0 ml/min 06/21/17 04:17 BUN/Creatinine Ratio 21.1 06/21/17 04:17 Glucose 104 mg/dL (70-105) 06/21/17 04:17 POC Glucose 102 MG/DL (70 - 105) 06/21/17 06:10 Whole Bld Lactic Acid 1.08 mmol/L (0.60-1.99) 06/18/17 23:18 Uric Acid 3.9 mg/dL (4.4-7.6) L 06/20/17 05:13 Calcium 9.0 mg/dL (8.6-10.3) 06/21/17 04:17 Total Bilirubin 1.3 mg/dL (0.3-1.0) H 06/19/17 10:10 AST 40 U/L (13-39) H 06/19/17 10:10 ALT 48 U/L (7-52) 06/19/17 10:10 Alkaline Phosphatase 70 U/L (34-104) 06/19/17 10:10 Creatine Kinase 882 U/L (30-223) H 06/20/17 05:13 CK-MB (CK-2) 3.4 ng/mL (0.6-6.3) 06/20/17 05:13 B-Natriuretic Peptide 26.1 pg/mL (5.0-100.0) 06/20/17 05:13 Total Protein 7.3 gm/dL (6.0-8.3) 06/19/17 10:10 Albumin 4.3 gm/dL (4.2-5.5) 06/19/17 10:10 Globulin 3.0 gm/dL 06/19/17 10:10 Albumin/Globulin Ratio 1.4 (1.0-1.8) 06/19/17 10:10 TSH 3.52 uIU/ml (0.34-5.60) 06/19/17 10:10 Blood Type O POSITIVE 06/19/17 00:57 Antibody Screen NEGATIVE 06/19/17 00:57 - Physical Exam Vitals and I&O: Vital Signs Temp 97.3 F 06/21/17 04:00 Pulse 60 06/21/17 09:41 Resp 18 06/21/17 04:00 BP 119/72 06/21/17 09:41 Pulse Ox 99 06/21/17 04:00 Intake & Output 06/20/17 06/21/17 06/21/17 18:59 06:59 18:59 Intake Total 400 Output Total 700 100 Balance -300 -100 Weight (lbs) 154 lb 154 lb Intake: Oral 400 Output: Urine 700 100 Other: # Bowel Movements 0 Active Medications: Current Medications Acetaminophen (Tylenol) 650 mg PO Q4H PRN PRN Reason: Mild Pain Or Fever above 101 Stop: 08/17/17 22:49 Acetaminophen/Hydrocodone Bitart ([place] 5mg/325mg) 1 tab PO Q4H PRN PRN Reason: Pain (Severe) Stop: 08/17/17 22:49 Last Admin: 06/20/17 19:41 Dose: 1 tab Al Hydrox/Mg Hydrox/Simethicone (Maalox) 30 ml PO Q6H PRN PRN Reason: Dyspepsia Stop: 08/17/17 22:49 Albuterol Sulfate (Albuterol 2.5mg/3ml Neb Ud) 2.5 mg HHN Q2HRT PRN PRN Reason: Shortness of Breath or Wheeze Stop: 08/17/17 22:49 Amiodarone HCl (Cordarone) 200 mg PO DAILY [facility] Stop: 08/18/17 08:59 Last Admin: 06/21/17 09:41 Dose: 200 mg Carvedilol (Coreg) 3.125 mg PO BID [facility] Stop: 08/18/17 16:59 Last Admin: 06/21/17 09:41 Dose: 3.125 mg Digoxin (Lanoxin) 0.125 mg PO DAILY [facility] Stop: 08/18/17 08:59 Last Admin: 06/21/17 09:41 Dose: 0.125 mg Diltiazem HCl (Cardizem) 20 mg IVP Q4H PRN PRN Reason: HR Greater than 130 per min Stop: 08/17/17 22:49 Lisinopril (Zestril) 5 mg PO DAILY [facility] Stop: 08/19/17 08:59 Last Admin: 06/21/17 09:41 Dose: 5 mg Miscellaneous (Vte Chemical Prophylaxis Screen/ Admission) 1 ea [facility] PRN PRN PRN Reason: PROTOCOL Stop: 08/18/17 15:57 Morphine Sulfate (Morphine) 2 mg IVP Q4H PRN PRN Reason: Pain (Severe) Stop: 08/17/17 22:49 Last Admin: 06/20/17 00:55 Dose: 2 mg Ondansetron HCl (Zofran) 4 mg IV Q8H PRN PRN Reason: Nausea / Vomiting Stop: 08/17/17 22:49 Pantoprazole Sodium (Protonix) 40 mg PO BID [facility] Stop: 08/18/17 08:59 Last Admin: 06/21/17 09:40 Dose: 40 mg Sodium Chloride (Saline Flush) 10 ml IV QSHIFT [facility] Stop: 08/18/17 07:59 Last Admin: 06/21/17 09:41 Dose: 10 ml Zolpidem Tartrate (Ambien) 10 mg PO HS PRN PRN Reason: Insomnia Stop: 08/17/17 22:49 Last Admin: 06/20/17 23:14 Dose: 10 mg General: alert HEENT: NC/AT, PERRLA Neck: Supple Lungs: CTAB Cardiovascular: RRR, Normal S1, Normal S2, without murmur Abdomen: soft, non-tender, non-distended, positive bowel sound Extremities: clear, other (left knee hematoma) Neurological: alert Internal Medicine Assmt/Plan - Assessment Assessment: COUMADIN TOXICITY LLE HEMATOMA CAD S/P AICD CHF LEUKOCYTOSIS ANEMIA - Plan Plan: hematoma evacuation today at noon telemetry monitoring pain mgmt continue current plan of care
--- NOTE | 2017-06-21 12:28 | Diagnostic Imaging Report ---
CHEST X-RAY: AP view INDICATION: Shortness of breath COMPARISON: None FINDINGS: Left chest wall AICD is noted with leads in the right ventricle. No focal consolidation or pleural effusions. Heart size is normal. There is atherosclerosis of the aortic arch. Degenerative changes of the spine are noted. IMPRESSION: No focal airspace consolidation identified. Left chest wall ICD apparatus noted.
[2017-06-21] MEDS ORDERED: fentaNYL Citrate 100 mcg/2mL Vial ONE (12:45)
[2017-06-21] MEDS ORDERED: Midazolam 1mg/ml 2 ml vial IV ONE (12:45)
--- NOTE | 2017-06-21 12:46 | General Progress Note ---
Subjective - Review of Systems Service Date: 06/21/17 Events since last encounter: Op: evacuation of hematoma left thigh discussed with Journal Entry Audit Clerk switching out of Coumadin as patient is unable to track PT well Objective - Results Result Diagrams: 06/21/17 04:17 06/21/17 04:17 Recent Labs: Laboratory Last Values WBC 13.6 Th/cmm (4.8-10.8) H 06/21/17 04:17 RBC 3.73 Mil/cmm (4.30-5.70) L 06/21/17 04:17 Hgb 11.8 gm/dL (12-16) L 06/21/17 04:17 Hct 33.7 % (41.0-60) L 06/21/17 04: MCV 90.3 fl (80-99) 06/21/17 04:17 MCH 31.7 pg (26.0-30.0) H 06/21/17 04: MCHC Differential 35.1 pg (28.0-36.0) 06/21/17 04: RDW 12.7 % (11.5-20.0) 06/21/17 04:17 Plt Count 235 Th/cmm (150-400) 06/21/17 04:17 MPV 8.4 fl 06/21/17 04:17 Neutrophils % 77.3 % (40.0-80.0) 06/21/17 04:17 Lymphocytes % 10.5 % (20.0-50.0) L 06/21/17 04:17 Monocytes % 8.5 % (2.0-10.0) 06/21/17 04:17 Eosinophils % 3.7 % (0.0-5.0) 06/21/17 04:17 Basophils % 0.0 % (0.0-2.0) 06/21/17 04:17 Neutrophils (Manual) 78 % (40-80) 06/20/17 05:13 Lymphocytes 16 % (20-50) L 06/20/17 05:13 Monocytes 3 % (2-10) 06/20/17 05:13 Eosinophils 3 % (0-5) 06/20/17 05:13 PT 11.4 SECONDS (9.5-11.5) 06/21/17 04:17 INR 1.09 (0.5-1.4) 06/21/17 04:17 PTT (Actin FS) 32.3 SECONDS (26.0-38.0) 06/21/17 04:17 Sodium 131 mEq/L (136-145) L 06/21/17 04:17 Potassium 4.0 mEq/L (3.5-5.1) 06/21/17 04:17 Chloride 97 mEq/L (98-107) L 06/21/17 04:17 Carbon Dioxide 28.4 mEq/L (21.0-31.0) 06/21/17 04:17 Anion Gap 9.6 (7.0-16.0) 06/21/17 04:17 BUN 19 mg/dL (7-25) 06/21/17 04:17 Creatinine 0.9 mg/dL (0.7-1.3) 06/21/17 04:17 Est GFR ( Amer) > 60.0 ml/min (>90) 06/21/17 04:17 Est GFR (Non-Af Amer) > 60.0 ml/min 06/21/17 04:17 BUN/Creatinine Ratio 21.1 06/21/17 04:17 Glucose 104 mg/dL (70-105) 06/21/17 04:17 POC Glucose 102 MG/DL (70 - 105) 06/21/17 06:10 Whole Bld Lactic Acid 1.08 mmol/L (0.60-1.99) 06/18/17 23:18 Uric Acid 3.9 mg/dL (4.4-7.6) L 06/20/17 05:13 Calcium 9.0 mg/dL (8.6-10.3) 06/21/17 04:17 Total Bilirubin 1.3 mg/dL (0.3-1.0) H 06/19/17 10:10 AST 40 U/L (13-39) H 06/19/17 10:10 ALT 48 U/L (7-52) 06/19/17 10:10 Alkaline Phosphatase 70 U/L (34-104) 06/19/17 10:10 Creatine Kinase 882 U/L (30-223) H 06/20/17 05:13 CK-MB (CK-2) 3.4 ng/mL (0.6-6.3) 06/20/17 05:13 B-Natriuretic Peptide 26.1 pg/mL (5.0-100.0) 06/20/17 05:13 Total Protein 7.3 gm/dL (6.0-8.3) 06/19/17 10:10 Albumin 4.3 gm/dL (4.2-5.5) 06/19/17 10:10 Globulin 3.0 gm/dL 06/19/17 10:10 Albumin/Globulin Ratio 1.4 (1.0-1.8) 06/19/17 10:10 TSH 3.52 uIU/ml (0.34-5.60) 06/19/17 10:10 Blood Type O POSITIVE 06/19/17 00:57 Antibody Screen NEGATIVE 06/19/17 00:57 - Physical Exam Vitals and I&O: Vital Signs Temp 97.3 F 06/21/17 04:00 Pulse 60 06/21/17 09:41 Resp 18 06/21/17 04:00 BP 119/72 06/21/17 09:41 Pulse Ox 99 06/21/17 04:00 Intake & Output 06/20/17 06/21/17 06/21/17 18:59 06:59 18:59 Intake Total 400 Output Total 700 100 Balance -300 -100 Weight (lbs) 69.853 kg 69.853 kg Intake: Oral 400 Output: Urine 700 100 Other: # Bowel Movements 0 Active Medications: Current Medications Acetaminophen (Tylenol) 650 mg PO Q4H PRN PRN Reason: Mild Pain Or Fever above 101 Stop: 08/17/17 22:49 Acetaminophen/Hydrocodone Bitart ([place] 5mg/325mg) 1 tab PO Q4H PRN PRN Reason: Pain (Severe) Stop: 08/17/17 22:49 Last Admin: 06/20/17 19:41 Dose: 1 tab Al Hydrox/Mg Hydrox/Simethicone (Maalox) 30 ml PO Q6H PRN PRN Reason: Dyspepsia Stop: 08/17/17 22:49 Albuterol Sulfate (Albuterol 2.5mg/3ml Neb Ud) 2.5 mg HHN Q2HRT PRN PRN Reason: Shortness of Breath or Wheeze Stop: 08/17/17 22:49 Amiodarone HCl (Cordarone) 200 mg PO DAILY [facility] Stop: 08/18/17 08:59 Last Admin: 06/21/17 09:41 Dose: 200 mg Carvedilol (Coreg) 3.[address] [facility] Stop: 08/18/17 16:59 Last Admin: 06/21/17 09:41 Dose: 3.125 mg Digoxin (Lanoxin) 0.[address] [facility] Stop: 08/18/17 08:59 Last Admin: 06/21/17 09:41 Dose: 0.125 mg Diltiazem HCl (Cardizem) 20 mg IVP Q4H PRN PRN Reason: HR Greater than 130 per min Stop: 08/17/17 22:49 Lisinopril (Zestril) [address] [facility] Stop: 08/19/17 08:59 Last Admin: 06/21/17 09:41 Dose: 5 mg Miscellaneous (Vte Chemical Prophylaxis Screen/ Admission) 1 ea [facility] PRN PRN PRN Reason: PROTOCOL Stop: 08/18/17 15:57 Morphine Sulfate (Morphine) 2 mg IVP Q4H PRN PRN Reason: Pain (Severe) Stop: 08/17/17 22:49 Last Admin: 06/20/17 00:55 Dose: 2 mg Ondansetron HCl (Zofran) 4 mg IV Q8H PRN PRN Reason: Nausea / Vomiting Stop: 08/17/17 22:49 Pantoprazole Sodium (Protonix) [address] [facility] Stop: 08/18/17 08:59 Last Admin: 06/21/17 09:40 Dose: 40 mg Sodium Chloride (Saline Flush) [address] [facility] Stop: 08/18/17 07:59 Last Admin: 06/21/17 09:41 Dose: 10 ml Zolpidem Tartrate (Ambien) 10 mg PO HS PRN PRN Reason: Insomnia Stop: 08/17/17 22:49 Last Admin: 06/20/17 23:14 Dose: 10 mg Assessment/Plan - Problem List Patient Problems: All Active Problems PAIN TO LEFT KNEE/THIGH (Acute)
--- NOTE | 2017-06-21 15:02 | Operative Report ---
DATE OF SURGERY: 06/21/2017 PREOPERATIVE DIAGNOSES: 1. Hematoma, left thigh. 2. Coumadin toxicity. 3. Cardiac arrhythmias post AICD placement. POSTOPERATIVE DIAGNOSES: 1. Hematoma, left thigh. 2. Coumadin toxicity. 3. Cardiac arrhythmias post AICD placement. OPERATION DONE: Incision and drainage of hematoma, left thigh. SURGEON: Ethan Ortega M.D. ANESTHESIA: MAC. ANESTHESIOLOGIST: Gabrielle Saxena M.D. ESTIMATED BLOOD LOSS: None. INDICATIONS FOR SURGERY: The patient developed severe pain and swelling of the left thigh prior to admission. HISTORY OF PRESENT ILLNESS: The patient is being on Coumadin and taking contraindicated medications, developed severe toxicity with prothrombin time of 99 seconds. This was stopped. CT scan showed hematoma, left side. No compartment syndrome with percent preservation of pulses distally. OPERATIVE FINDINGS: Minimal blood clots in the fascia were placed over the muscles in the lateral and anterior aspect of the left thigh. DESCRIPTION OF PROCEDURE: The patient was given IV sedation. The left thigh was prepped with Betadine and draped in appropriate manner. Then, 1% lidocaine was used to infiltrate the anterolateral aspect of the thigh at its midportion. An incision 2 inches long was made. Digital exploration was carried out. Blood clots noted below and above the side of the incision. Most of blood was in the superior thigh region. A Chung-Montemayor drain was left in the incisions in the cavity. The incision was closed with 4-0 Vicryl subcutaneously and the drain was anchored in place with 2-0 silk. The patient tolerated the procedure well. Discussion was made with Dr. Chase Hudson, special police, regarding Need for anticoagulation postoperative ordered on Coumadin. JOB# [id number]
[2017-06-21] MEDS: Hydrocodone/APAP 5mg/325mg Tab PO PRN (17:19)
[2017-06-22 05:51] LABS: ANION GAP 7.4 (7.0-16.0); BUN - UREA NITROGEN 18 mg/dL (7-25); CARBON DIOXIDE 28.6 mEq/L (21.0-31.0); CHLORIDE 95 mEq/L (98-107); CREATININE - SERUM 0.9 mg/dL (0.7-1.3); GLUCOSE 114 mg/dL (70-105); SODIUM SERUM 127 mEq/L (136-145)
[2017-06-22 05:52] LABS: HEMATOCRIT 34.2 % (41.0-60); HEMOGLOBIN 11.8 gm/dL (12-16); MEAN CELL VOLUME 92.4 fl (80-99); MEAN CORPUSCULAR HEMOGLOBIN 31.8 pg (26.0-30.0); MEAN CORPUSCULAR HGB CONC 34.4 pg (28.0-36.0); MEAN PLATELET VOLUME 8.4 fl; PLATELET COUNT 238 Th/cmm (150-400); RED CELL DISTRIBUTION WIDTH 12.7 % (11.5-20.0)
[2017-06-22 06:37] LABS: WHITE BLOOD COUNT 14.1 Th/cmm (4.8-10.8)
[2017-06-22 07:44] LABS: NEUTROPHILS 92 % (40-80); PLATELET ESTIMATE ADEQUATE (NORMAL); TOTAL CELLS COUNTED 100
[2017-06-22] MEDS: Pantoprazole 40 mg EC Tab PO SCH ×2 (08:30→16:05)
--- NOTE | 2017-06-22 09:42 | General Progress Note ---
Subjective - Review of Systems Service Date: 06/22/17 Events since last encounter: minimal CARMEN drainage restart anticoagulation per Dr. Hudson Objective - Results Result Diagrams: 06/22/17 04:38 06/22/17 04:38 Recent Labs: Laboratory Last Values WBC 14.1 Th/cmm (4.8-10.8) H 06/22/17 04:38 RBC 3.70 Mil/cmm (4.30-5.70) L 06/22/17 04:38 Hgb 11.8 gm/dL (12-16) L 06/22/17 04:38 Hct 34.2 % (41.0-60) L 06/22/17 04:38 MCV 92.4 fl (80-99) 06/22/17 04:38 MCH 31.8 pg (26.0-30.0) H 06/22/17 04:38 MCHC Differential 34.4 pg (28.0-36.0) 06/22/17 04:38 RDW 12.7 % (11.5-20.0) 06/22/17 04:38 Plt Count 238 Th/cmm (150-400) 06/22/17 04:38 MPV 8.4 fl 06/22/17 04:38 Neutrophils % 77.3 % (40.0-80.0) 06/21/17 04:17 Lymphocytes % 10.5 % (20.0-50.0) L 06/21/17 04:17 Monocytes % 8.5 % (2.0-10.0) 06/21/17 04:17 Eosinophils % 3.7 % (0.0-5.0) 06/21/17 04:17 Basophils % 0.0 % (0.0-2.0) 06/21/17 04:17 Neutrophils (Manual) 92 % (40-80) H 06/22/17 04:38 Lymphocytes 4 % (20-50) L 06/22/17 04:38 Monocytes 4 % (2-10) 06/22/17 04:38 Eosinophils 3 % (0-5) 06/20/17 05:13 Platelet Estimate ADEQUATE (NORMAL) 06/22/17 04:38 PT 11.4 SECONDS (9.5-11.5) 06/21/17 04:17 INR 1.09 (0.5-1.4) 06/21/17 04:17 PTT (Actin FS) 32.3 SECONDS (26.0-38.0) 06/21/17 04:17 Sodium 127 mEq/L (136-145) L 06/22/17 04:38 Potassium 4.0 mEq/L (3.5-5.1) 06/22/17 04:38 Chloride 95 mEq/L (98-107) L 06/22/17 04:38 Carbon Dioxide 28.6 mEq/L (21.0-31.0) 06/22/17 04:38 Anion Gap 7.4 (7.0-16.0) 06/22/17 04:38 BUN 18 mg/dL (7-25) 06/22/17 04:38 Creatinine 0.9 mg/dL (0.7-1.3) 06/22/17 04:38 Est GFR ( Amer) > 60.0 ml/min (>90) 06/22/17 04:38 Est GFR (Non-Af Amer) > 60.0 ml/min 06/22/17 04:38 BUN/Creatinine Ratio 20.0 06/22/17 04:38 Glucose 114 mg/dL (70-105) H 06/22/17 04:38 POC Glucose 102 MG/DL (70 - 105) 06/21/17 06:10 Whole Bld Lactic Acid 1.08 mmol/L (0.60-1.99) 06/18/17 23:18 Uric Acid 3.9 mg/dL (4.4-7.6) L 06/20/17 05:13 Calcium 9.0 mg/dL (8.6-10.3) 06/22/17 04:38 Total Bilirubin 1.3 mg/dL (0.3-1.0) H 06/19/17 10:10 AST 40 U/L (13-39) H 06/19/17 10:10 ALT 48 U/L (7-52) 06/19/17 10:10 Alkaline Phosphatase 70 U/L (34-104) 06/19/17 10:10 Creatine Kinase 882 U/L (30-223) H 06/20/17 05:13 CK-MB (CK-2) 3.4 ng/mL (0.6-6.3) 06/20/17 05:13 B-Natriuretic Peptide 26.1 pg/mL (5.0-100.0) 06/20/17 05:13 Total Protein 7.3 gm/dL (6.0-8.3) 06/19/17 10:10 Albumin 4.3 gm/dL (4.2-5.5) 06/19/17 10:10 Globulin 3.0 gm/dL 06/19/17 10:10 Albumin/Globulin Ratio 1.4 (1.0-1.8) 06/19/17 10:10 TSH 3.52 uIU/ml (0.34-5.60) 06/19/17 10:10 Blood Type O POSITIVE 06/19/17 00:57 Antibody Screen NEGATIVE 06/19/17 00:57 - Physical Exam Vitals and I&O: Vital Signs Temp 98.6 F 06/22/17 08:00 Pulse 65 06/22/17 08:30 Resp 18 06/22/17 08:00 BP 113/73 06/22/17 08:30 Pulse Ox 100 06/22/17 08:00 Intake & Output 06/21/17 06/22/17 06/22/17 18:59 06:59 18:59 Intake Total 300 500 Output Total 400 550 Balance -100 -50 Weight (lbs) 69.853 kg 69.853 kg Intake: Oral 300 500 Output: Urine 400 550 Other: # Bowel Movements 0 Active Medications: Current Medications Acetaminophen (Tylenol) 650 mg PO Q4H PRN PRN Reason: Mild Pain Or Fever above 101 Stop: 08/17/17 22:49 Acetaminophen/Hydrocodone Bitart ([place] 5mg/325mg) 1 tab PO Q4H PRN PRN Reason: Pain (Severe) Stop: 08/17/17 22:49 Last Admin: 06/21/17 17:19 Dose: 1 tab Al Hydrox/Mg Hydrox/Simethicone (Maalox) 30 ml PO Q6H PRN PRN Reason: Dyspepsia Stop: 08/17/17 22:49 Albuterol Sulfate (Albuterol 2.5mg/3ml Neb Ud) 2.5 mg HHN Q2HRT PRN PRN Reason: Shortness of Breath or Wheeze Stop: 08/17/17 22:49 Amiodarone HCl (Cordarone) 200 mg PO DAILY [facility] Stop: 08/18/17 08:59 Last Admin: 06/22/17 08:30 Dose: Not Given Carvedilol (Coreg) 3.125 mg PO BID [facility] Stop: 08/18/17 16:59 Last Admin: 06/22/17 08:30 Dose: 3.125 mg Digoxin (Lanoxin) 0.125 mg PO DAILY [facility] Stop: 08/18/17 08:59 Last Admin: 06/22/17 08:28 Dose: 0.125 mg Diltiazem HCl (Cardizem) 20 mg IVP Q4H PRN PRN Reason: HR Greater than 130 per min Stop: 08/17/17 22:49 Lisinopril (Zestril) 5 mg PO DAILY [facility] Stop: 08/19/17 08:59 Last Admin: 06/22/17 08:28 Dose: 5 mg Miscellaneous (Vte Chemical Prophylaxis Screen/ Admission) 1 ea [facility] PRN PRN PRN Reason: PROTOCOL Stop: 08/18/17 15:57 Morphine Sulfate (Morphine) 2 mg IVP Q4H PRN PRN Reason: Pain (Severe) Stop: 08/17/17 22:49 Last Admin: 06/20/17 00:55 Dose: 2 mg Ondansetron HCl (Zofran) 4 mg IV Q8H PRN PRN Reason: Nausea / Vomiting Stop: 08/17/17 22:49 Pantoprazole Sodium (Protonix) 40 mg PO BID [facility] Stop: 08/18/17 08:59 Last Admin: 06/22/17 08:30 Dose: 40 mg Sodium Chloride (Saline Flush) 10 ml IV QSHIFT [facility] Stop: 08/18/17 07:59 Last Admin: 06/22/17 08:29 Dose: 10 ml Zolpidem Tartrate (Ambien) 10 mg PO HS PRN PRN Reason: Insomnia Stop: 08/17/17 22:49 Last Admin: 06/21/17 20:58 Dose: 10 mg Assessment/Plan - Problem List Patient Problems: All Active Problems PAIN TO LEFT KNEE/THIGH (Acute)
--- NOTE | 2017-06-22 12:18 | Internal Medicine Prog Note ---
Internal Medicine Subjective - Subjective Service Date: 06/22/17 (patient states he has not slept well, j/p drain in place , states pain is tolerable. ) Patient is:: awake Patient Complaints of:: other (pain) Per staff patient has:: no adverse event, tolerating meds Internal Medicine Objective - Results Result Diagrams: 06/22/17 04:38 06/22/17 04:38 Recent Labs: Laboratory Last Values WBC 14.1 Th/cmm (4.8-10.8) H 06/22/17 04:38 RBC 3.70 Mil/cmm (4.30-5.70) L 06/22/17 04:38 Hgb 11.8 gm/dL (12-16) L 06/22/17 04:38 Hct 34.2 % (41.0-60) L 06/22/17 04:38 MCV 92.4 fl (80-99) 06/22/17 04:38 MCH 31.8 pg (26.0-30.0) H 06/22/17 04:38 MCHC Differential 34.4 pg (28.0-36.0) 06/22/17 04:38 RDW 12.7 % (11.5-20.0) 06/22/17 04:38 Plt Count 238 Th/cmm (150-400) 06/22/17 04:38 MPV 8.4 fl 06/22/17 04:38 Neutrophils % 77.3 % (40.0-80.0) 06/21/17 04:17 Lymphocytes % 10.5 % (20.0-50.0) L 06/21/17 04:17 Monocytes % 8.5 % (2.0-10.0) 06/21/17 04:17 Eosinophils % 3.7 % (0.0-5.0) 06/21/17 04:17 Basophils % 0.0 % (0.0-2.0) 06/21/17 04:17 Neutrophils (Manual) 92 % (40-80) H 06/22/17 04:38 Lymphocytes 4 % (20-50) L 06/22/17 04:38 Monocytes 4 % (2-10) 06/22/17 04:38 Eosinophils 3 % (0-5) 06/20/17 05:13 Platelet Estimate ADEQUATE (NORMAL) 06/22/17 04:38 PT 11.4 SECONDS (9.5-11.5) 06/21/17 04:17 INR 1.09 (0.5-1.4) 06/21/17 04:17 PTT (Actin FS) 32.3 SECONDS (26.0-38.0) 06/21/17 04:17 Sodium 127 mEq/L (136-145) L 06/22/17 04:38 Potassium 4.0 mEq/L (3.5-5.1) 06/22/17 04:38 Chloride 95 mEq/L (98-107) L 06/22/17 04:38 Carbon Dioxide 28.6 mEq/L (21.0-31.0) 06/22/17 04:38 Anion Gap 7.4 (7.0-16.0) 06/22/17 04:38 BUN 18 mg/dL (7-25) 06/22/17 04:38 Creatinine 0.9 mg/dL (0.7-1.3) 06/22/17 04:38 Est GFR ( Amer) > 60.0 ml/min (>90) 06/22/17 04:38 Est GFR (Non-Af Amer) > 60.0 ml/min 06/22/17 04:38 BUN/Creatinine Ratio 20.0 06/22/17 04:38 Glucose 114 mg/dL (70-105) H 06/22/17 04:38 POC Glucose 102 MG/DL (70 - 105) 06/21/17 06:10 Whole Bld Lactic Acid 1.08 mmol/L (0.60-1.99) 06/18/17 23:18 Uric Acid 3.9 mg/dL (4.4-7.6) L 06/20/17 05:13 Calcium 9.0 mg/dL (8.6-10.3) 06/22/17 04:38 Total Bilirubin 1.3 mg/dL (0.3-1.0) H 06/19/17 10:10 AST 40 U/L (13-39) H 06/19/17 10:10 ALT 48 U/L (7-52) 06/19/17 10:10 Alkaline Phosphatase 70 U/L (34-104) 06/19/17 10:10 Creatine Kinase 882 U/L (30-223) H 06/20/17 05:13 CK-MB (CK-2) 3.4 ng/mL (0.6-6.3) 06/20/17 05:13 B-Natriuretic Peptide 26.1 pg/mL (5.0-100.0) 06/20/17 05:13 Total Protein 7.3 gm/dL (6.0-8.3) 06/19/17 10:10 Albumin 4.3 gm/dL (4.2-5.5) 06/19/17 10:10 Globulin 3.0 gm/dL 06/19/17 10:10 Albumin/Globulin Ratio 1.4 (1.0-1.8) 06/19/17 10:10 TSH 3.52 uIU/ml (0.34-5.60) 06/19/17 10:10 Blood Type O POSITIVE 06/19/17 00:57 Antibody Screen NEGATIVE 06/19/17 00:57 - Physical Exam Vitals and I&O: Vital Signs Temp 98.7 F 06/22/17 11:43 Pulse 54 06/22/17 11:43 Resp 18 06/22/17 11:43 BP 123/71 06/22/17 11:43 Pulse Ox 99 06/22/17 11:43 Intake & Output 06/21/17 06/22/17 06/22/17 18:59 06:59 18:59 Intake Total 300 500 Output Total 400 550 Balance -100 -50 Weight (lbs) 154 lb 154 lb Intake: Oral 300 500 Output: Urine 400 550 Other: # Bowel Movements 0 Active Medications: Current Medications Acetaminophen (Tylenol) 650 mg PO Q4H PRN PRN Reason: Mild Pain Or Fever above 101 Stop: 08/17/17 22:49 Acetaminophen/Hydrocodone Bitart ([place] 5mg/325mg) 1 tab PO Q4H PRN PRN Reason: Pain (Severe) Stop: 08/17/17 22:49 Last Admin: 06/21/17 17:19 Dose: 1 tab Al Hydrox/Mg Hydrox/Simethicone (Maalox) 30 ml PO Q6H PRN PRN Reason: Dyspepsia Stop: 08/17/17 22:49 Albuterol Sulfate (Albuterol 2.5mg/3ml Neb Ud) 2.5 mg HHN Q2HRT PRN PRN Reason: Shortness of Breath or Wheeze Stop: 08/17/17 22:49 Amiodarone HCl (Cordarone) 200 mg PO DAILY [facility] Stop: 08/18/17 08:59 Last Admin: 06/22/17 08:30 Dose: Not Given Carvedilol (Coreg) 3.125 mg PO BID [facility] Stop: 08/18/17 16:59 Last Admin: 06/22/17 08:30 Dose: 3.125 mg Digoxin (Lanoxin) 0.125 mg PO DAILY [facility] Stop: 08/18/17 08:59 Last Admin: 06/22/17 08:28 Dose: 0.125 mg Diltiazem HCl (Cardizem) 20 mg IVP Q4H PRN PRN Reason: HR Greater than 130 per min Stop: 08/17/17 22:49 Lisinopril (Zestril) 5 mg PO DAILY [facility] Stop: 08/19/17 08:59 Last Admin: 06/22/17 08:28 Dose: 5 mg Miscellaneous (Vte Chemical Prophylaxis Screen/ Admission) 1 ea [facility] PRN PRN PRN Reason: PROTOCOL Stop: 08/18/17 15:57 Morphine Sulfate (Morphine) 2 mg IVP Q4H PRN PRN Reason: Pain (Severe) Stop: 08/17/17 22:49 Last Admin: 06/20/17 00:55 Dose: 2 mg Ondansetron HCl (Zofran) 4 mg IV Q8H PRN PRN Reason: Nausea / Vomiting Stop: 08/17/17 22:49 Pantoprazole Sodium (Protonix) 40 mg PO BID [facility] Stop: 08/18/17 08:59 Last Admin: 06/22/17 08:30 Dose: 40 mg Sodium Chloride (Saline Flush) 10 ml IV QSHIFT [facility] Stop: 08/18/17 07:59 Last Admin: 06/22/17 08:29 Dose: 10 ml Sodium Chloride (Nacl Tab) 2 gm PO X1 [facility] Stop: 08/21/17 12:14 Zolpidem Tartrate (Ambien) 10 mg PO HS PRN PRN Reason: Insomnia Stop: 08/17/17 22:49 Last Admin: 06/21/17 20:58 Dose: 10 mg General: alert HEENT: NC/AT, PERRLA Neck: Supple Lungs: CTAB Cardiovascular: RRR, Normal S1, Normal S2, without murmur Abdomen: soft, non-tender, non-distended, positive bowel sound Extremities: clear, other (left knee hematoma) Neurological: alert Internal Medicine Assmt/Plan - Assessment Assessment: COUMADIN TOXICITY LLE HEMATOMA s/p evacuation CAD S/P AICD CHF LEUKOCYTOSIS ANEMIA Hyponatremia - Plan Plan: monitor output of j/p drain nacl 2gm x1 telemetry monitoring pain mgmt continue current plan of care
--- NOTE | 2017-06-22 12:59 | General Progress Note ---
Subjective - Review of Systems Service Date: 06/22/17 Events since last encounter: left thigh drain Objective - Results Result Diagrams: 06/22/17 04:38 06/22/17 04:38 Recent Labs: Laboratory Last Values WBC 14.1 Th/cmm (4.8-10.8) H 06/22/17 04:38 RBC 3.70 Mil/cmm (4.30-5.70) L 06/22/17 04:38 Hgb 11.8 gm/dL (12-16) L 06/22/17 04:38 Hct 34.2 % (41.0-60) L 06/22/17 04:38 MCV 92.4 fl (80-99) 06/22/17 04:38 MCH 31.8 pg (26.0-30.0) H 06/22/17 04:38 MCHC Differential 34.4 pg (28.0-36.0) 06/22/17 04:38 RDW 12.7 % (11.5-20.0) 06/22/17 04:38 Plt Count 238 Th/cmm (150-400) 06/22/17 04:38 MPV 8.4 fl 06/22/17 04:38 Neutrophils % 77.3 % (40.0-80.0) 06/21/17 04:17 Lymphocytes % 10.5 % (20.0-50.0) L 06/21/17 04:17 Monocytes % 8.5 % (2.0-10.0) 06/21/17 04:17 Eosinophils % 3.7 % (0.0-5.0) 06/21/17 04:17 Basophils % 0.0 % (0.0-2.0) 06/21/17 04:17 Neutrophils (Manual) 92 % (40-80) H 06/22/17 04:38 Lymphocytes 4 % (20-50) L 06/22/17 04:38 Monocytes 4 % (2-10) 06/22/17 04:38 Eosinophils 3 % (0-5) 06/20/17 05:13 Platelet Estimate ADEQUATE (NORMAL) 06/22/17 04:38 PT 11.4 SECONDS (9.5-11.5) 06/21/17 04:17 INR 1.09 (0.5-1.4) 06/21/17 04:17 PTT (Actin FS) 32.3 SECONDS (26.0-38.0) 06/21/17 04:17 Sodium 127 mEq/L (136-145) L 06/22/17 04:38 Potassium 4.0 mEq/L (3.5-5.1) 06/22/17 04:38 Chloride 95 mEq/L (98-107) L 06/22/17 04:38 Carbon Dioxide 28.6 mEq/L (21.0-31.0) 06/22/17 04:38 Anion Gap 7.4 (7.0-16.0) 06/22/17 04:38 BUN 18 mg/dL (7-25) 06/22/17 04:38 Creatinine 0.9 mg/dL (0.7-1.3) 06/22/17 04:38 Est GFR ( Amer) > 60.0 ml/min (>90) 06/22/17 04:38 Est GFR (Non-Af Amer) > 60.0 ml/min 06/22/17 04:38 BUN/Creatinine Ratio 20.0 06/22/17 04:38 Glucose 114 mg/dL (70-105) H 06/22/17 04:38 POC Glucose 102 MG/DL (70 - 105) 06/21/17 06:10 Whole Bld Lactic Acid 1.08 mmol/L (0.60-1.99) 06/18/17 23:18 Uric Acid 3.9 mg/dL (4.4-7.6) L 06/20/17 05:13 Calcium 9.0 mg/dL (8.6-10.3) 06/22/17 04:38 Total Bilirubin 1.3 mg/dL (0.3-1.0) H 06/19/17 10:10 AST 40 U/L (13-39) H 06/19/17 10:10 ALT 48 U/L (7-52) 06/19/17 10:10 Alkaline Phosphatase 70 U/L (34-104) 06/19/17 10:10 Creatine Kinase 882 U/L (30-223) H 06/20/17 05:13 CK-MB (CK-2) 3.4 ng/mL (0.6-6.3) 06/20/17 05:13 B-Natriuretic Peptide 26.1 pg/mL (5.0-100.0) 06/20/17 05:13 Total Protein 7.3 gm/dL (6.0-8.3) 06/19/17 10:10 Albumin 4.3 gm/dL (4.2-5.5) 06/19/17 10:10 Globulin 3.0 gm/dL 06/19/17 10:10 Albumin/Globulin Ratio 1.4 (1.0-1.8) 06/19/17 10:10 TSH 3.52 uIU/ml (0.34-5.60) 06/19/17 10:10 Blood Type O POSITIVE 06/19/17 00:57 Antibody Screen NEGATIVE 06/19/17 00:57 - Physical Exam Vitals and I&O: Vital Signs Temp 98.7 F 06/22/17 11:43 Pulse 54 06/22/17 11:43 Resp 18 06/22/17 12:00 BP 123/71 06/22/17 11:43 Pulse Ox 99 06/22/17 11:43 Intake & Output 06/21/17 06/22/17 06/22/17 18:59 06:59 18:59 Intake Total 300 500 Output Total 400 550 Balance -100 -50 Weight (lbs) 69.853 kg 69.853 kg Intake: Oral 300 500 Output: Urine 400 550 Other: # Bowel Movements 0 Active Medications: Current Medications Acetaminophen (Tylenol) 650 mg PO Q4H PRN PRN Reason: Mild Pain Or Fever above 101 Stop: 08/17/17 22:49 Acetaminophen/Hydrocodone Bitart ([place] 5mg/325mg) 1 tab PO Q4H PRN PRN Reason: Pain (Severe) Stop: 08/17/17 22:49 Last Admin: 06/21/17 17:19 Dose: 1 tab Al Hydrox/Mg Hydrox/Simethicone (Maalox) 30 ml PO Q6H PRN PRN Reason: Dyspepsia Stop: 08/17/17 22:49 Albuterol Sulfate (Albuterol 2.5mg/3ml Neb Ud) 2.5 mg HHN Q2HRT PRN PRN Reason: Shortness of Breath or Wheeze Stop: 08/17/17 22:49 Amiodarone HCl (Cordarone) 200 mg PO DAILY [facility] Stop: 08/18/17 08:59 Last Admin: 06/22/17 08:30 Dose: Not Given Carvedilol (Coreg) 3.125 mg PO BID [facility] Stop: 08/18/17 16:59 Last Admin: 06/22/17 08:30 Dose: 3.125 mg Digoxin (Lanoxin) 0.125 mg PO DAILY [facility] Stop: 08/18/17 08:59 Last Admin: 06/22/17 08:28 Dose: 0.125 mg Diltiazem HCl (Cardizem) 20 mg IVP Q4H PRN PRN Reason: HR Greater than 130 per min Stop: 08/17/17 22:49 Lisinopril (Zestril) 5 mg PO DAILY [facility] Stop: 08/19/17 08:59 Last Admin: 06/22/17 08:28 Dose: 5 mg Miscellaneous (Vte Chemical Prophylaxis Screen/ Admission) 1 ea [facility] PRN PRN PRN Reason: PROTOCOL Stop: 08/18/17 15:57 Morphine Sulfate (Morphine) 2 mg IVP Q4H PRN PRN Reason: Pain (Severe) Stop: 08/17/17 22:49 Last Admin: 06/20/17 00:55 Dose: 2 mg Ondansetron HCl (Zofran) 4 mg IV Q8H PRN PRN Reason: Nausea / Vomiting Stop: 08/17/17 22:49 Pantoprazole Sodium (Protonix) 40 mg PO BID [facility] Stop: 08/18/17 08:59 Last Admin: 06/22/17 08:30 Dose: 40 mg Sodium Chloride (Saline Flush) 10 ml IV QSHIFT [facility] Stop: 08/18/17 07:59 Last Admin: 06/22/17 08:29 Dose: 10 ml Zolpidem Tartrate (Ambien) 10 mg PO HS PRN PRN Reason: Insomnia Stop: 08/17/17 22:49 Last Admin: 06/21/17 20:58 Dose: 10 mg Assessment/Plan - Problem List Patient Problems: All Active Problems PAIN TO LEFT KNEE/THIGH (Acute) - Assessment Assessment: * Left thigh hematoma * s/p coumadin overdose Keep off coumadin for now
[2017-06-22] MEDS: Hydrocodone/APAP 5mg/325mg Tab PO PRN ×2 (16:04→20:29)
[2017-06-23 05:41] LABS: % BASOPHILS 0.1 % (0.0-2.0); % EOSINOPHILS 4.5 % (0.0-5.0); % LYMPHOCYTES 11.4 % (20.0-50.0); % MONOCYTES 8.8 % (2.0-10.0); % NEUTROPHILS 75.2 % (40.0-80.0); HEMATOCRIT 32.1 % (41.0-60); MEAN CELL VOLUME 91.9 fl (80-99); MEAN CORPUSCULAR HEMOGLOBIN 31.5 pg (26.0-30.0); MEAN CORPUSCULAR HGB CONC 34.2 pg (28.0-36.0); MEAN PLATELET VOLUME 8.1 fl; NEUTROPHILE ABSOLUTE 8.7 Th/cmm (1.8-8.0); PLATELET COUNT 227 Th/cmm (150-400); RED CELL DISTRIBUTION WIDTH 12.8 % (11.5-20.0); WHITE BLOOD COUNT 11.5 Th/cmm (4.8-10.8)
[2017-06-23] MEDS: Hydrocodone/APAP 5mg/325mg Tab PO PRN ×2 (05:47→19:43)
[2017-06-23 05:54] LABS: INR 0.96 (0.5-1.4)
[2017-06-23 05:58] LABS: ANION GAP 7.4 (7.0-16.0); BUN - UREA NITROGEN 16 mg/dL (7-25); BUN/CREATININE RATIO 17.8; CALCIUM SERUM 8.7 mg/dL (8.6-10.3); CARBON DIOXIDE 29.2 mEq/L (21.0-31.0); CHLORIDE 96 mEq/L (98-107); CREATININE - SERUM 0.9 mg/dL (0.7-1.3); GLUCOSE 101 mg/dL (70-105); POTASSIUM SERUM 3.6 mEq/L (3.5-5.1); SODIUM SERUM 129 mEq/L (136-145)
[2017-06-23] MEDS: Pantoprazole 40 mg EC Tab PO SCH ×2 (08:47→16:09)
--- NOTE | 2017-06-23 14:47 | Internal Medicine Prog Note ---
Internal Medicine Subjective - Subjective Patient seen and examined:: with staff, chart reviewed Patient is:: awake Patient Complaints of:: other (pain) Per staff patient has:: no adverse event, tolerating meds Internal Medicine Objective - Results Result Diagrams: 06/23/17 05:02 06/23/17 05:02 Recent Labs: Laboratory Last Values WBC 11.5 Th/cmm (4.8-10.8) H 06/23/17 05:02 RBC 3.50 Mil/cmm (4.30-5.70) L 06/23/17 05:02 Hgb 11.0 gm/dL (12-16) L 06/23/17 05:02 Hct 32.1 % (41.0-60) L 06/23/17 05:02 MCV 91.9 fl (80-99) 06/23/17 05:02 MCH 31.5 pg (26.0-30.0) H 06/23/17 05:02 MCHC Differential 34.2 pg (28.0-36.0) 06/23/17 05:02 RDW 12.8 % (11.5-20.0) 06/23/17 05:02 Plt Count 227 Th/cmm (150-400) 06/23/17 05:02 MPV 8.1 fl 06/23/17 05:02 Neutrophils % 75.2 % (40.0-80.0) 06/23/17 05:02 Lymphocytes % 11.4 % (20.0-50.0) L 06/23/17 05:02 Monocytes % 8.8 % (2.0-10.0) 06/23/17 05:02 Eosinophils % 4.5 % (0.0-5.0) 06/23/17 05:02 Basophils % 0.1 % (0.0-2.0) 06/23/17 05:02 Neutrophils (Manual) 92 % (40-80) H 06/22/17 04:38 Lymphocytes 4 % (20-50) L 06/22/17 04:38 Monocytes 4 % (2-10) 06/22/17 04:38 Eosinophils 3 % (0-5) 06/20/17 05:13 Platelet Estimate ADEQUATE (NORMAL) 06/22/17 04:38 PT 10.0 SECONDS (9.5-11.5) 06/23/17 05:02 INR 0.96 (0.5-1.4) 06/23/17 05:02 PTT (Actin FS) 29.8 SECONDS (26.0-38.0) 06/23/17 05:02 Sodium 129 mEq/L (136-145) L 06/23/17 05:02 Potassium 3.6 mEq/L (3.5-5.1) 06/23/17 05:02 Chloride 96 mEq/L (98-107) L 06/23/17 05:02 Carbon Dioxide 29.2 mEq/L (21.0-31.0) 06/23/17 05:02 Anion Gap 7.4 (7.0-16.0) 06/23/17 05:02 BUN 16 mg/dL (7-25) 06/23/17 05:02 Creatinine 0.9 mg/dL (0.7-1.3) 06/23/17 05:02 Est GFR ( Amer) > 60.0 ml/min (>90) 06/23/17 05:02 Est GFR (Non-Af Amer) > 60.0 ml/min 06/23/17 05:02 BUN/Creatinine Ratio 17.8 06/23/17 05:02 Glucose 101 mg/dL (70-105) 06/23/17 05:02 POC Glucose 102 MG/DL (70 - 105) 06/21/17 06:10 Whole Bld Lactic Acid 1.08 mmol/L (0.60-1.99) 06/18/17 23:18 Uric Acid 3.9 mg/dL (4.4-7.6) L 06/20/17 05:13 Calcium 8.7 mg/dL (8.6-10.3) 06/23/17 05:02 Total Bilirubin 1.3 mg/dL (0.3-1.0) H 06/19/17 10:10 AST 40 U/L (13-39) H 06/19/17 10:10 ALT 48 U/L (7-52) 06/19/17 10:10 Alkaline Phosphatase 70 U/L (34-104) 06/19/17 10:10 Creatine Kinase 882 U/L (30-223) H 06/20/17 05:13 CK-MB (CK-2) 3.4 ng/mL (0.6-6.3) 06/20/17 05:13 B-Natriuretic Peptide 26.1 pg/mL (5.0-100.0) 06/20/17 05:13 Total Protein 7.3 gm/dL (6.0-8.3) 06/19/17 10:10 Albumin 4.3 gm/dL (4.2-5.5) 06/19/17 10:10 Globulin 3.0 gm/dL 06/19/17 10:10 Albumin/Globulin Ratio 1.4 (1.0-1.8) 06/19/17 10:10 TSH 3.52 uIU/ml (0.34-5.60) 06/19/17 10:10 Blood Type O POSITIVE 06/19/17 00:57 Antibody Screen NEGATIVE 06/19/17 00:57 - Physical Exam Vitals and I&O: Vital Signs Temp 98.7 F 06/23/17 08:00 Pulse 79 06/23/17 08:49 Resp 18 06/23/17 08:00 BP 126/46 06/23/17 08:48 Pulse Ox 98 06/23/17 08:00 Intake & Output 06/22/17 06/23/17 06/23/17 18:59 06:59 18:59 Intake Total 750 700 700 Output Total 16 1040 20 Balance 734 -340 680 Weight (lbs) 69.91 kg 69.853 kg 69.853 kg Intake: Oral 750 700 700 Output: Drainage 15 20 20 Left Thigh 15 20 20 Urine 1 1020 Other: # Bowel Movements 1 Active Medications: Current Medications Acetaminophen (Tylenol) 650 mg PO Q4H PRN PRN Reason: Mild Pain Or Fever above 101 Stop: 08/17/17 22:49 Acetaminophen/Hydrocodone Bitart ([place] 5mg/325mg) 1 tab PO Q4H PRN PRN Reason: Pain (Severe) Stop: 08/17/17 22:49 Last Admin: 06/23/17 05:47 Dose: 1 tab Al Hydrox/Mg Hydrox/Simethicone (Maalox) 30 ml PO Q6H PRN PRN Reason: Dyspepsia Stop: 08/17/17 22:49 Albuterol Sulfate (Albuterol 2.5mg/3ml Neb Ud) 2.5 mg HHN Q2HRT PRN PRN Reason: Shortness of Breath or Wheeze Stop: 08/17/17 22:49 Amiodarone HCl (Cordarone) 200 mg PO DAILY [facility] Stop: 08/18/17 08:59 Last Admin: 06/23/17 08:49 Dose: 200 mg Carvedilol (Coreg) 3.125 mg PO BID [facility] Stop: 08/18/17 16:59 Last Admin: 06/23/17 08:48 Dose: 3.125 mg Digoxin (Lanoxin) 0.125 mg PO DAILY [facility] Stop: 08/18/17 08:59 Last Admin: 06/23/17 08:49 Dose: 0.125 mg Diltiazem HCl (Cardizem) 20 mg IVP Q4H PRN PRN Reason: HR Greater than 130 per min Stop: 08/17/17 22:49 Lisinopril (Zestril) 5 mg PO DAILY [facility] Stop: 08/19/17 08:59 Last Admin: 06/23/17 08:48 Dose: 5 mg Miscellaneous (Vte Chemical Prophylaxis Screen/ Admission) 1 ea [facility] PRN PRN PRN Reason: PROTOCOL Stop: 08/18/17 15:57 Morphine Sulfate (Morphine) 2 mg IVP Q4H PRN PRN Reason: Pain (Severe) Stop: 08/17/17 22:49 Last Admin: 06/20/17 00:55 Dose: 2 mg Ondansetron HCl (Zofran) 4 mg IV Q8H PRN PRN Reason: Nausea / Vomiting Stop: 08/17/17 22:49 Pantoprazole Sodium (Protonix) 40 mg PO BID [facility] Stop: 08/18/17 08:59 Last Admin: 06/23/17 08:47 Dose: 40 mg Rivaroxaban (Xarelto) 10 mg PO DAILY [facility] Stop: 08/23/17 08:59 Sodium Chloride (Saline Flush) 10 ml IV QSHIFT [facility] Stop: 08/18/17 07:59 Last Admin: 06/22/17 20:30 Dose: 10 ml Zolpidem Tartrate (Ambien) 10 mg PO HS PRN PRN Reason: Insomnia Stop: 08/17/17 22:49 Last Admin: 06/22/17 22:12 Dose: 10 mg General: alert HEENT: NC/AT, PERRLA Neck: Supple Lungs: CTAB Cardiovascular: RRR, Normal S1, Normal S2, without murmur Abdomen: soft, non-tender, non-distended, positive bowel sound Extremities: clear, other (left knee hematoma) Neurological: alert - Procedures Procedures: Procedures Procedure Code Date BLOOD TRANSFUSION SERVICE 39405 06/18/17 DRAINAGE OF HEMATOMA/FLUID 22904 06/18/17 DRAINAGE OF L UP LEG SUBCU/FASCIA, OPEN APPROACH [id number] 06/18/17 TRANSFUSE NONAUT FROZEN PLASMA IN PERIPH VEIN, PERC 60139L2 06/18/17 Internal Medicine Assmt/Plan - Assessment Assessment: COUMADIN TOXICITY LLE HEMATOMA s/p evacuation CAD S/P AICD CHF LEUKOCYTOSIS ANEMIA Hyponatremia - Plan Plan: monitor h and h will start on xarelto will confer w heme hopefully remove sissy in am carlos rn Nutritional Asmnt/Malnutr-PDOC - Dietary Evaluation Malnutrition Findings (Please click <Entered> for more info): Nutritional Asmnt/Malnutrition Start: 06/23/17 12: 21 Text: Status: Complete Freq: Document 06/23/17 12:21 MMULHERN (Rec: 06/23/17 12:43 MMULHERN GILL [email or web address]) Nutritional Asmnt/Malnutrition Patient General Information Nutritional Screening Moderate Risk Screening Diagnosis Reason for visit: Lt Knee hematoma, coumadin toxicity Pertinent Medical Hx/Surgical Hx CAD, cardiac arrhthmia status poast AICD, CHF Subjective Information Patient in bed at time of visit. Oral intake of 75% of meals is adequate to meet nutrient needs. Current Diet Order/ Nutrition Support Soft/bland diet Patient / S.O Not Indicated Pertinent Medications maalox, zofran, protonix Pertinent Labs 06/23: Na 129 Nutritional Hx/Data Height 1.68 m Height (Calculated Centimeters) 167.6 Current Weight (lbs) 69.853 kg Weight (Calculated Kilograms) 69.9 Weight (Calculated Grams) 66787.2 [place] Body Weight 142 % [place] Body Weight 108 Recent Weight Change No Weight Status Approriate GI Symptoms GI Symptoms None Food Allergies No Cultural/Ethnic/[place] Belief None indicated Usual diet at home Regular Skin Integrity/Comment: mitch 19, 2+ edema, intact Current %PO Good (75-100%) Estimated Nutritional Goals BEE in Kcals: Using Current wt Calories/Kcals/Kg 25-30 kcal/kg using CBW 70kg Kcals Calculated ~9152-4007 kcal/day Protein: Using Current wt Protein g/k gm/kg using CBW 70kg Protein Calculated 70gm/day Fluid: ml Per MD d/t edema Nutritional Problem 1. Problem Problem Altered nutrition related lab values related to Etiology electrolye imbalance aeb Signs/Symptoms: Na 129 Intervention/Recommendation Comments 1. Consider modifying diet to soft, low sodium diet due to 2 + edema and Na 129. Expected Outcomes/Goals Expected Outcomes/Goals Edema resolves, Na normalizes, oral intake to meet >75% of esitmated nutrient needs.
[2017-06-24] MEDS: Morphine Sulfate 2 mg/mL 1mL Syr IVP PRN (00:36)
[2017-06-24 05:28] LABS: % BASOPHILS 0.1 % (0.0-2.0); % EOSINOPHILS 5.5 % (0.0-5.0); % LYMPHOCYTES 16.6 % (20.0-50.0); % NEUTROPHILS 68.8 % (40.0-80.0); HEMATOCRIT 33.8 % (41.0-60); HEMOGLOBIN 11.3 gm/dL (12-16); MEAN CORPUSCULAR HEMOGLOBIN 31.1 pg (26.0-30.0); MEAN CORPUSCULAR HGB CONC 33.4 pg (28.0-36.0); MEAN PLATELET VOLUME 8.2 fl; PLATELET COUNT 259 Th/cmm (150-400); RED BLOOD COUNT 3.64 Mil/cmm (4.30-5.70); WHITE BLOOD COUNT 10.2 Th/cmm (4.8-10.8)
[2017-06-24 05:37] LABS: INR 0.96 (0.5-1.4)
[2017-06-24] MEDS: Pantoprazole 40 mg EC Tab PO SCH ×2 (08:25→17:35)
--- NOTE | 2017-06-24 10:53 | Internal Medicine Prog Note ---
Internal Medicine Subjective - Subjective Patient seen and examined:: with staff, chart reviewed Patient is:: awake, verbal, interactive Patient Complaints of:: other (pain) Per staff patient has:: no adverse event, tolerating meds Internal Medicine Objective - Results Result Diagrams: 06/24/17 04:45 06/23/17 05:02 Recent Labs: Laboratory Last Values WBC 10.2 Th/cmm (4.8-10.8) 06/24/17 04:45 RBC 3.64 Mil/cmm (4.30-5.70) L 06/24/17 04:45 Hgb 11.3 gm/dL (12-16) L 06/24/17 04:45 Hct 33.8 % (41.0-60) L 06/24/17 04:45 MCV 93.0 fl (80-99) 06/24/17 04:45 MCH 31.1 pg (26.0-30.0) H 06/24/17 04:45 MCHC Differential 33.4 pg (28.0-36.0) 06/24/17 04:45 RDW 13.0 % (11.5-20.0) 06/24/17 04:45 Plt Count 259 Th/cmm (150-400) 06/24/17 04:45 MPV 8.2 fl 06/24/17 04:45 Neutrophils % 68.8 % (40.0-80.0) 06/24/17 04:45 Lymphocytes % 16.6 % (20.0-50.0) L 06/24/17 04:45 Monocytes % 9.0 % (2.0-10.0) 06/24/17 04:45 Eosinophils % 5.5 % (0.0-5.0) H 06/24/17 04:45 Basophils % 0.1 % (0.0-2.0) 06/24/17 04:45 Neutrophils (Manual) 92 % (40-80) H 06/22/17 04:38 Lymphocytes 4 % (20-50) L 06/22/17 04:38 Monocytes 4 % (2-10) 06/22/17 04:38 Eosinophils 3 % (0-5) 06/20/17 05:13 Platelet Estimate ADEQUATE (NORMAL) 06/22/17 04:38 PT 10.0 SECONDS (9.5-11.5) 06/24/17 04:45 INR 0.96 (0.5-1.4) 06/24/17 04:45 PTT (Actin FS) 29.8 SECONDS (26.0-38.0) 06/23/17 05:02 Sodium 129 mEq/L (136-145) L 06/23/17 05:02 Potassium 3.6 mEq/L (3.5-5.1) 06/23/17 05:02 Chloride 96 mEq/L (98-107) L 06/23/17 05:02 Carbon Dioxide 29.2 mEq/L (21.0-31.0) 06/23/17 05:02 Anion Gap 7.4 (7.0-16.0) 06/23/17 05:02 BUN 16 mg/dL (7-25) 06/23/17 05:02 Creatinine 0.9 mg/dL (0.7-1.3) 06/23/17 05:02 Est GFR ( Amer) > 60.0 ml/min (>90) 06/23/17 05:02 Est GFR (Non-Af Amer) > 60.0 ml/min 06/23/17 05:02 BUN/Creatinine Ratio 17.8 06/23/17 05:02 Glucose 101 mg/dL (70-105) 06/23/17 05:02 POC Glucose 102 MG/DL (70 - 105) 06/21/17 06:10 Whole Bld Lactic Acid 1.08 mmol/L (0.60-1.99) 06/18/17 23:18 Uric Acid 3.9 mg/dL (4.4-7.6) L 06/20/17 05:13 Calcium 8.7 mg/dL (8.6-10.3) 06/23/17 05:02 Total Bilirubin 1.3 mg/dL (0.3-1.0) H 06/19/17 10:10 AST 40 U/L (13-39) H 06/19/17 10:10 ALT 48 U/L (7-52) 06/19/17 10:10 Alkaline Phosphatase 70 U/L (34-104) 06/19/17 10:10 Creatine Kinase 882 U/L (30-223) H 06/20/17 05:13 CK-MB (CK-2) 3.4 ng/mL (0.6-6.3) 06/20/17 05:13 B-Natriuretic Peptide 26.1 pg/mL (5.0-100.0) 06/20/17 05:13 Total Protein 7.3 gm/dL (6.0-8.3) 06/19/17 10:10 Albumin 4.3 gm/dL (4.2-5.5) 06/19/17 10:10 Globulin 3.0 gm/dL 06/19/17 10:10 Albumin/Globulin Ratio 1.4 (1.0-1.8) 06/19/17 10:10 TSH 3.52 uIU/ml (0.34-5.60) 06/19/17 10:10 Blood Type O POSITIVE 06/19/17 00:57 Antibody Screen NEGATIVE 06/19/17 00:57 - Physical Exam Vitals and I&O: Vital Signs Temp 97 F 06/24/17 08:00 Pulse 71 06/24/17 08:25 Resp 18 06/24/17 08:00 BP 119/64 06/24/17 08:25 Pulse Ox 98 06/24/17 08:00 Intake & Output 06/23/17 06/24/17 06/24/17 18:59 06:59 18:59 Intake Total 1500 340 240 Output Total 60 450 305 Balance 1440 -110 -65 Weight (lbs) 69.853 kg 69.853 kg 69.853 kg Intake: Oral 1500 340 240 Output: Drainage 60 Left Thigh 60 Urine 450 300 Other 5 Other: # Voids 4 # Bowel Movements 0 0 Active Medications: Current Medications Acetaminophen (Tylenol) 650 mg PO Q4H PRN PRN Reason: Mild Pain Or Fever above 101 Stop: 08/17/17 22:49 Acetaminophen/Hydrocodone Bitart ([place] 5mg/325mg) 1 tab PO Q4H PRN PRN Reason: Pain (Severe) Stop: 08/17/17 22:49 Last Admin: 06/23/17 19:43 Dose: 1 tab Al Hydrox/Mg Hydrox/Simethicone (Maalox) 30 ml PO Q6H PRN PRN Reason: Dyspepsia Stop: 08/17/17 22:49 Albuterol Sulfate (Albuterol 2.5mg/3ml Neb Ud) 2.5 mg HHN Q2HRT PRN PRN Reason: Shortness of Breath or Wheeze Stop: 08/17/17 22:49 Amiodarone HCl (Cordarone) 200 mg PO DAILY [facility] Stop: 08/18/17 08:59 Last Admin: 06/24/17 08:24 Dose: 200 mg Carvedilol (Coreg) 3.125 mg PO BID [facility] Stop: 08/18/17 16:59 Last Admin: 06/24/17 08:24 Dose: Not Given Digoxin (Lanoxin) 0.125 mg PO DAILY [facility] Stop: 08/18/17 08:59 Last Admin: 06/24/17 08:25 Dose: 0.125 mg Diltiazem HCl (Cardizem) 20 mg IVP Q4H PRN PRN Reason: HR Greater than 130 per min Stop: 08/17/17 22:49 Lisinopril (Zestril) 5 mg PO DAILY [facility] Stop: 08/19/17 08:59 Last Admin: 06/24/17 08:25 Dose: 5 mg Miscellaneous (Vte Chemical Prophylaxis Screen/ Admission) 1 ea PRN PRN PRN Reason: PROTOCOL Stop: 08/18/17 15:57 Morphine Sulfate (Morphine) 2 mg IVP Q4H PRN PRN Reason: Pain (Severe) Stop: 08/17/17 22:49 Last Admin: 06/24/17 00:36 Dose: 2 mg Ondansetron HCl (Zofran) 4 mg IV Q8H PRN PRN Reason: Nausea / Vomiting Stop: 08/17/17 22:49 Pantoprazole Sodium (Protonix) 40 mg PO BID [facility] Stop: 08/18/17 08:59 Last Admin: 06/24/17 08:25 Dose: 40 mg Sodium Chloride (Saline Flush) 10 ml IV QSHIFT [facility] Stop: 08/18/17 07:59 Last Admin: 06/24/17 08:25 Dose: 10 ml Warfarin Sodium (Coumadin Per Pharmacy) 1 ea PRN PRN; Protocol PRN Reason: RX MONITORING Stop: 08/22/17 15:11 Warfarin Sodium (Coumadin) 1 mg PO C PRIYA PRN Reason: Protocol Stop: 08/22/17 15:12 Zolpidem Tartrate (Ambien) 10 mg PO HS PRN PRN Reason: Insomnia Stop: 08/17/17 22:49 Last Admin: 06/23/17 20:34 Dose: 10 mg General: alert HEENT: NC/AT, PERRLA Neck: Supple Lungs: CTAB Cardiovascular: RRR, Normal S1, Normal S2, without murmur Abdomen: soft, non-tender, non-distended, positive bowel sound Extremities: clear, other (left knee hematoma) Neurological: alert - Procedures Procedures: Procedures Procedure Code Date BLOOD TRANSFUSION SERVICE 42026 06/18/17 DRAINAGE OF HEMATOMA/FLUID 19299 06/18/17 DRAINAGE OF L UP LEG SUBCU/FASCIA, OPEN APPROACH [id number] 06/18/17 TRANSFUSE NONAUT FROZEN PLASMA IN PERIPH VEIN, PERC 67374P2 06/18/17 Internal Medicine Assmt/Plan - Assessment Assessment: COUMADIN TOXICITY LLE HEMATOMA s/p evacuation CAD S/P AICD CHF LEUKOCYTOSIS ANEMIA Hyponatremia - Plan Plan: monitor h and h will start on coumadin will confer w heme hopefully remove sissy in am carlos rn Nutritional Asmnt/Malnutr-PDOC - Dietary Evaluation Malnutrition Findings (Please click <Entered> for more info): Nutritional Asmnt/Malnutrition Start: 06/23/17 12: 21 Text: Status: Complete Freq: Document 06/23/17 12:21 MMULMJ (Rec: 06/23/17 12:43 MMULMJ [place]- [email or web address]) Nutritional Asmnt/Malnutrition Patient General Information Nutritional Screening Moderate Risk Screening Diagnosis Reason for visit: Lt Knee hematoma, coumadin toxicity Pertinent Medical Hx/Surgical Hx CAD, cardiac arrhthmia status poast AICD, CHF Subjective Information Patient in bed at time of visit. Oral intake of 75% of meals is adequate to meet nutrient needs. Current Diet Order/ Nutrition Support Soft/bland diet Patient / S.O Not Indicated Pertinent Medications maalox, zofran, protonix Pertinent Labs 06/23: Na 129 Nutritional Hx/Data Height 1.68 m Height (Calculated Centimeters) 167.6 Current Weight (lbs) 69.853 kg Weight (Calculated Kilograms) 69.9 Weight (Calculated Grams) 48118.2 [place] Body Weight 142 % [place] Body Weight 108 Recent Weight Change No Weight Status Approriate GI Symptoms GI Symptoms None Food Allergies No Cultural/Ethnic/Nondenominational Belief None indicated Usual diet at home Regular Skin Integrity/Comment: mitch 19, 2+ edema, intact Current %PO Good (75-100%) Estimated Nutritional Goals BEE in Kcals: Using Current wt Calories/Kcals/Kg 25-30 kcal/kg using CBW 70kg Kcals Calculated ~9051-8032 kcal/day Protein: Using Current wt Protein g/k gm/kg using CBW 70kg Protein Calculated 70gm/day Fluid: ml Per MD d/t edema Nutritional Problem 1. Problem Problem Altered nutrition related lab values related to Etiology electrolye imbalance aeb Signs/Symptoms: Na 129 Intervention/Recommendation Comments 1. Consider modifying diet to soft, low sodium diet due to 2 + edema and Na 129. Expected Outcomes/Goals Expected Outcomes/Goals Edema resolves, Na normalizes, oral intake to meet >75% of esitmated nutrient needs.
[2017-06-24] MEDS: Hydrocodone/APAP 5mg/325mg Tab PO PRN (17:36)
[2017-06-25] MEDS: Hydrocodone/APAP 5mg/325mg Tab PO PRN (01:48)
[2017-06-25 06:07] LABS: INR 1.04 (0.5-1.4); PROTHROMBIN TIME (TEST) 10.8 SECONDS (9.5-11.5)
[2017-06-25] MEDS: Pantoprazole 40 mg EC Tab PO SCH (09:02)
--- NOTE | 2017-06-25 12:14 | Internal Medicine Prog Note ---
Internal Medicine Subjective - Subjective Service Date: 06/25/17 (dc summary [id number]) Patient is:: awake, verbal, interactive Patient Complaints of:: other (pain) Per staff patient has:: no adverse event, tolerating meds Internal Medicine Objective - Results Result Diagrams: 06/24/17 04:45 06/23/17 05:02 Recent Labs: Laboratory Last Values WBC 10.2 Th/cmm (4.8-10.8) 06/24/17 04:45 RBC 3.64 Mil/cmm (4.30-5.70) L 06/24/17 04:45 Hgb 11.3 gm/dL (12-16) L 06/24/17 04:45 Hct 33.8 % (41.0-60) L 06/24/17 04:45 MCV 93.0 fl (80-99) 06/24/17 04:45 MCH 31.1 pg (26.0-30.0) H 06/24/17 04:45 MCHC Differential 33.4 pg (28.0-36.0) 06/24/17 04:45 RDW 13.0 % (11.5-20.0) 06/24/17 04:45 Plt Count 259 Th/cmm (150-400) 06/24/17 04:45 MPV 8.2 fl 06/24/17 04:45 Neutrophils % 68.8 % (40.0-80.0) 06/24/17 04:45 Lymphocytes % 16.6 % (20.0-50.0) L 06/24/17 04:45 Monocytes % 9.0 % (2.0-10.0) 06/24/17 04:45 Eosinophils % 5.5 % (0.0-5.0) H 06/24/17 04:45 Basophils % 0.1 % (0.0-2.0) 06/24/17 04:45 Neutrophils (Manual) 92 % (40-80) H 06/22/17 04:38 Lymphocytes 4 % (20-50) L 06/22/17 04:38 Monocytes 4 % (2-10) 06/22/17 04:38 Eosinophils 3 % (0-5) 06/20/17 05:13 Platelet Estimate ADEQUATE (NORMAL) 06/22/17 04:38 PT 10.8 SECONDS (9.5-11.5) 06/25/17 05:25 INR 1.04 (0.5-1.4) 06/25/17 05:25 PTT (Actin FS) 29.8 SECONDS (26.0-38.0) 06/23/17 05:02 Sodium 129 mEq/L (136-145) L 06/23/17 05:02 Potassium 3.6 mEq/L (3.5-5.1) 06/23/17 05:02 Chloride 96 mEq/L (98-107) L 06/23/17 05:02 Carbon Dioxide 29.2 mEq/L (21.0-31.0) 06/23/17 05:02 Anion Gap 7.4 (7.0-16.0) 06/23/17 05:02 BUN 16 mg/dL (7-25) 06/23/17 05:02 Creatinine 0.9 mg/dL (0.7-1.3) 06/23/17 05:02 Est GFR ( Amer) > 60.0 ml/min (>90) 06/23/17 05:02 Est GFR (Non-Af Amer) > 60.0 ml/min 06/23/17 05:02 BUN/Creatinine Ratio 17.8 06/23/17 05:02 Glucose 101 mg/dL (70-105) 06/23/17 05:02 POC Glucose 102 MG/DL (70 - 105) 06/21/17 06:10 Whole Bld Lactic Acid 1.08 mmol/L (0.60-1.99) 06/18/17 23:18 Uric Acid 3.9 mg/dL (4.4-7.6) L 06/20/17 05:13 Calcium 8.7 mg/dL (8.6-10.3) 06/23/17 05:02 Total Bilirubin 1.3 mg/dL (0.3-1.0) H 06/19/17 10:10 AST 40 U/L (13-39) H 06/19/17 10:10 ALT 48 U/L (7-52) 06/19/17 10:10 Alkaline Phosphatase 70 U/L (34-104) 06/19/17 10:10 Creatine Kinase 882 U/L (30-223) H 06/20/17 05:13 CK-MB (CK-2) 3.4 ng/mL (0.6-6.3) 06/20/17 05:13 B-Natriuretic Peptide 26.1 pg/mL (5.0-100.0) 06/20/17 05:13 Total Protein 7.3 gm/dL (6.0-8.3) 06/19/17 10:10 Albumin 4.3 gm/dL (4.2-5.5) 06/19/17 10:10 Globulin 3.0 gm/dL 06/19/17 10:10 Albumin/Globulin Ratio 1.4 (1.0-1.8) 06/19/17 10:10 TSH 3.52 uIU/ml (0.34-5.60) 06/19/17 10:10 Blood Type O POSITIVE 06/19/17 00:57 Antibody Screen NEGATIVE 06/19/17 00:57 - Physical Exam Vitals and I&O: Vital Signs Temp 97.2 F 06/25/17 12:00 Pulse 67 06/25/17 12:00 Resp 18 06/25/17 12:00 BP 141/75 06/25/17 12:00 Pulse Ox 100 06/25/17 12:00 Intake & Output 06/24/17 06/25/17 06/25/17 18:59 06:59 18:59 Intake Total 1040 750 Output Total 315 660 Balance 725 90 Weight (lbs) 154 lb 154 lb Intake: Oral 1040 750 Output: Drainage 10 10 Left Thigh 10 10 Urine 300 650 Other 5 Other: # Voids 4 # Bowel Movements 1 0 Active Medications: Current Medications Acetaminophen (Tylenol) 650 mg PO Q4H PRN PRN Reason: Mild Pain Or Fever above 101 Stop: 08/17/17 22:49 Acetaminophen/Hydrocodone Bitart ([place] 5mg/325mg) 1 tab PO Q4H PRN PRN Reason: Pain (Severe) Stop: 08/17/17 22:49 Last Admin: 06/25/17 01:48 Dose: 1 tab Al Hydrox/Mg Hydrox/Simethicone (Maalox) 30 ml PO Q6H PRN PRN Reason: Dyspepsia Stop: 08/17/17 22:49 Albuterol Sulfate (Albuterol 2.5mg/3ml Neb Ud) 2.5 mg HHN Q2HRT PRN PRN Reason: Shortness of Breath or Wheeze Stop: 08/17/17 22:49 Amiodarone HCl (Cordarone) 200 mg PO DAILY [facility] Stop: 08/18/17 08:59 Last Admin: 06/25/17 09:04 Dose: 200 mg Carvedilol (Coreg) 3.125 mg PO BID [facility] Stop: 08/18/17 16:59 Last Admin: 06/25/17 09:03 Dose: 3.125 mg Digoxin (Lanoxin) 0.125 mg PO DAILY PRIYA Stop: 08/18/17 08:59 Last Admin: 06/25/17 09:03 Dose: 0.125 mg Diltiazem HCl (Cardizem) 20 mg IVP Q4H PRN PRN Reason: HR Greater than 130 per min Stop: 08/17/17 22:49 Lisinopril (Zestril) 5 mg PO DAILY [facility] Stop: 08/19/17 08:59 Last Admin: 06/25/17 09:04 Dose: 5 mg Miscellaneous (Vte Chemical Prophylaxis Screen/ Admission) 1 christopher PRN PRN PRN Reason: PROTOCOL Stop: 08/18/17 15:57 Morphine Sulfate (Morphine) 2 mg IVP Q4H PRN PRN Reason: Pain (Severe) Stop: 08/17/17 22:49 Last Admin: 06/24/17 00:36 Dose: 2 mg Ondansetron HCl (Zofran) 4 mg IV Q8H PRN PRN Reason: Nausea / Vomiting Stop: 08/17/17 22:49 Pantoprazole Sodium (Protonix) 40 mg PO BID [facility] Stop: 08/18/17 08:59 Last Admin: 06/25/17 09:02 Dose: 40 mg Sodium Chloride (Saline Flush) 10 ml IV QSHIFT [facility] Stop: 08/18/17 07:59 Last Admin: 06/25/17 09:05 Dose: 10 ml Warfarin Sodium (Coumadin Per Pharmacy) 1 christopher PRN PRN; Protocol PRN Reason: RX MONITORING Stop: 08/22/17 15:11 Warfarin Sodium (Coumadin) 6 mg PO 1300 ONE Stop: 06/25/17 13:01 Zolpidem Tartrate (Ambien) 10 mg PO HS PRN PRN Reason: Insomnia Stop: 08/17/17 22:49 Last Admin: 06/25/17 03:30 Dose: 10 mg General: alert HEENT: NC/AT, PERRLA Neck: Supple Lungs: CTAB Cardiovascular: RRR, Normal S1, Normal S2, without murmur Abdomen: soft, non-tender, non-distended, positive bowel sound Extremities: clear, other (left knee hematoma) Neurological: alert - Procedures Procedures: Procedures Procedure Code Date BLOOD TRANSFUSION SERVICE 87062 06/18/17 DRAINAGE OF HEMATOMA/FLUID 63886 06/18/17 DRAINAGE OF L UP LEG SUBCU/FASCIA, OPEN APPROACH [id number] 06/18/17 TRANSFUSE NONAUT FROZEN PLASMA IN PERIPH VEIN, PERC 30961J6 06/18/17 Internal Medicine Assmt/Plan - Assessment Assessment: COUMADIN TOXICITY LLE HEMATOMA s/p evacuation CAD S/P AICD CHF LEUKOCYTOSIS ANEMIA Hyponatremia Nutritional Asmnt/Malnutr-PDOC - Dietary Evaluation Malnutrition Findings (Please click <Entered> for more info): Nutritional Asmnt/Malnutrition Start: 06/23/17 12: 21 Text: Status: Complete Freq: Document 06/23/17 12:21 MMULHERN (Rec: 06/23/17 12:43 MMULHERN [place]- [email or web address]) Nutritional Asmnt/Malnutrition Patient General Information Nutritional Screening Moderate Risk Screening Diagnosis Reason for visit: Lt Knee hematoma, coumadin toxicity Pertinent Medical Hx/Surgical Hx CAD, cardiac arrhthmia status poast AICD, CHF Subjective Information Patient in bed at time of visit. Oral intake of 75% of meals is adequate to meet nutrient needs. Current Diet Order/ Nutrition Support Soft/bland diet Patient / S.O Not Indicated Pertinent Medications maalox, zofran, protonix Pertinent Labs 06/23: Na 129 Nutritional Hx/Data Height 5 ft 6 in Height (Calculated Centimeters) 167.6 Current Weight (lbs) 154 lb Weight (Calculated Kilograms) 69.9 Weight (Calculated Grams) 67859.2 [place] Body Weight 142 % [place] Body Weight 108 Recent Weight Change No Weight Status Approriate GI Symptoms GI Symptoms None Food Allergies No Cultural/Ethnic/Presybeterian Belief None indicated Usual diet at home Regular Skin Integrity/Comment: mitch 19, 2+ edema, intact Current %PO Good (75-100%) Estimated Nutritional Goals BEE in Kcals: Using Current wt Calories/Kcals/Kg 25-30 kcal/kg using CBW 70kg Kcals Calculated ~3694-0501 kcal/day Protein: Using Current wt Protein g/k gm/kg using CBW 70kg Protein Calculated 70gm/day Fluid: ml Per MD d/t edema Nutritional Problem 1. Problem Problem Altered nutrition related lab values related to Etiology electrolye imbalance aeb Signs/Symptoms: Na 129 Intervention/Recommendation Comments 1. Consider modifying diet to soft, low sodium diet due to 2 + edema and Na 129. Expected Outcomes/Goals Expected Outcomes/Goals Edema resolves, Na normalizes, oral intake to meet >75% of esitmated nutrient needs.
[2017-06-25] MEDS ORDERED: Hydrocodone/APAP 5mg/325mg Tab PO ONE (12:25)
--- NOTE | 2017-06-25 19:54 | Discharge Summary ---
DATE OF DISCHARGE: 06/25/2017 DICTATED FOR: Dr. Mike Viveros. DISCHARGE DIAGNOSES: Coumadin toxicity which has been treated; left lower extremity hematoma, status post evacuation; coronary artery disease, status post AICD; CHF; leukocytosis which has resolved; anemia, and hyponatremia which has resolved. HISTORY OF PRESENT ILLNESS: This is a 51-year-old [place] male with a history of coronary artery disease, cardiac arrhythmia status post AICD, And CHF, who was admitted from home secondary to left leg pain and swelling. The patient was complaining of pain and took Celebrex. The patient was brought into the ER. The CT showed a large hematoma, ____, and was given fresh frozen plasma. PHYSICAL EXAMINATION: GENERAL: The patient is well developed, well nourished, no acute distress. VITAL SIGNS: Stable. HEENT: Head; normocephalic, atraumatic. NECK: Supple. No mass. LUNGS: Clear bilaterally. ABDOMEN: Soft, nontender. HOSPITAL COURSE: During the hospital stay, the patient was initially admitted to the ICU unit. The patient had a cardiology consultation as well as hematology. The patient had an episode of bradycardia and we made adjustments to his antihypertensive medications. The patient had a CT of the lower extremities the showed a large hematoma. Also, an extremity arterial study was done and the impression is evidence of mild diffuse atherosclerotic changes throughout the arterial system of the left leg, findings somewhat more pronounced within the lower leg and foot region. A venous Doppler was also done to rule out any DVT and the impression is negative exam for DVT, heterogenous relatively large density within the soft tissues of the left lateral thigh area, this corresponds to the changes noted on earlier CT scan of 06/19/2017, appearance is nonspecific changes related to hematoma. A chest x-ray was also obtained and the impression is no focal airspace consolidation, left chest ICD apparatus noted. The patient had a surgical consultation done on 06/21/2017. The patient had an evacuation done by Dr. Ortega. The patient tolerated the procedure well. The patient had a CARMEN drain in. On 06/25/2017, Dr. Ortega saw the patient and removed the CARMEN. The patient is stable for discharge. CONDITION UPON DISCHARGE: Fair. DISPOSITION: The patient is going home. JOB# [id number]
== END 2017-06-25 13:35 | disposition home or self-care (01) | DRG 580 ==
LOC: ER 18:16 → ICU 21:15 → TELE 06-19 18:54
PROVIDERS: ADMIT Internal Medicine; ATTEND Internal Medicine
PROC: 30233K1 Transfusion of Nonautologous Frozen Plasma into Peripheral Vein, Percutaneous Approach (ICD-10-PCS; 2017-06-19)
PROC: 30233L1 Transfusion of Nonautologous Fresh Plasma into Peripheral Vein, Percutaneous Approach (ICD-10-PCS; 2017-06-19)
PROC: 0J9M0ZZ Drainage of Left Upper Leg Subcutaneous Tissue and Fascia, Open Approach (ICD-10-PCS; principal; 2017-06-21)
DX: S70.12XA Contusion of left thigh, initial encounter (principal); E87.1 Hypo-osmolality and hyponatremia; I50.30 Unspecified diastolic (congestive) heart failure; D68.9 Coagulation defect, unspecified; I48.91 Unspecified atrial fibrillation; R00.1 Bradycardia, unspecified; D72.829 Elevated white blood cell count, unspecified; T45.515A Adverse effect of anticoagulants, initial encounter; I25.10 Atherosclerotic heart disease of native coronary artery without angina pectoris; D50.9 Iron deficiency anemia, unspecified; Y92.89 Other specified places as the place of occurrence of the external cause; Z95.810 Presence of automatic (implantable) cardiac defibrillator
CPT/HCPCS: 36415-UA; 71010-TC; 73700-TC-LT; 80048-TC; 80053-TC; 82550-TC; 82553; 82948-90; 83605; 83880-TC; 84443-TC; 84550-TC; 85007-TC; 85025-TC; 85027-TC; 85610-TC; 86850-TC; 86900-TC; 86901-TC; 86927-TC; 93005; 93926-LT-TC; 93971-TC-LT; 94760; J1170; J2001; J2250; J2270; J2704; J3430; P9017; X6206; Z7610